=== PATIENT | female | born 1955 | race American Indian/Alaskan Native ===

== ENCOUNTER 2017-04-18 18:56 | Inpatient (IN) | payer MEDICARE ==
[2017-04-18 21:40] LABS: Basophils % (Auto) 0.9 % (0.0-1.8); Eosinophils % (Auto) 0.8 % (0.0-4.3); Hematocrit 27.5 % (30.3-42.9); Hemoglobin 9.2 gm/dl (10.1-14.3); Mean Corpuscular HGB Conc 33 % (30-34); Mean Corpuscular Hemoglobin 29 pg (28-32); Mean Corpuscular Volume 88 fl (79-97); Platelet Count 169 K/mm3 (140-440); Red Blood Count 3.13 M/mm3 (3.65-5.03); White Blood Count 7.8 K/mm3 (4.5-11.0)
[2017-04-18] MEDS ORDERED: NACL 0.9% 1000 ML 1,000 ML IV ONE (21:44)
[2017-04-18] MEDS ORDERED: ATIVAN IV ONE (21:44)
--- NOTE | 2017-04-18 21:49 | Emergency Department Report ---
HPI - General Chief Complaint: Altered Mental Status Time Seen by Provider: 04/18/17 21:39 - HPI HPI: Room 6 The patient is a 61-year-old female presenting with a chief complaint of altered mental status. The patient was sent from [facility] after staff reported the patient has been altered all day. Patient does not respond to questions. Patient doesn't make eye contact at times but then continued to sit in the bed and rocking [id number] during the interview. Patient does not provide a history Location: Mental state Duration: One day per personal [facility]dc Quality: Altered Severity: [see above] Modifying factors: [see above] Context: [see above] Mode of transportation: [not driving] ED Past Medical Hx - Past Medical History Previous Medical History?: Yes Hx Hypertension: Yes Hx Psychiatric Treatment: Yes (depression) Additional medical history: ETOH abuse; cirrhosis; elevated ammonia levels - Surgical History Past Surgical History?: No Additional Surgical History: LUBNA - Family History Family history: no significant - Social History Smoking Status: Unknown if ever smoked - Medications Home Medications: Home Medications Medication Instructions Recorded Confirmed Last Taken Type Sertraline [Zoloft] 50 mg PO QDAY 03/08/15 03/08/15 03/08/15 History Thiamine [Vitamin B-1] 100 mg PO QDAY 03/08/15 03/08/15 03/08/15 History ED Review of Systems ROS: Stated complaint: AMS Other details as noted in HPI Comment: Unobtainable due to pts medical conditions Physical Exam - Physical Exam Vital Signs: Vital Signs 04/18/17 04/18/17 04/18/17 20:20 20:30 20:46 Pulse Rate 107 H 113 H 133 H Respiratory 14 18 42 H Rate Blood Pressure 144/128 141/86 O2 Sat by Pulse 95 98 99 Oximetry Physical Exam: GENERAL: The patient is well-developed female lying on stretcher rocking back and forth not responding verbally HEENT: Normocephalic. Atraumatic. The patient has dry-appearing lips NECK: Supple. No meningitic signs are noted. CHEST/LUNGS: Clear to auscultation. There is no respiratory distress noted. HEART/CARDIOVASCULAR: Regular. There is tachycardia. There is no gallop rub or murmur. ABDOMEN: Abdomen is soft, nontender. Patient has normal bowel sounds. There is no abdominal distention. SKIN: There is no rash. There is 1-2+ bilateral lower extremity pitting edema. There is no diaphoresis. NEURO: The patient is awake but does not respond verbally. The patient is not cooperative. MUSCULOSKELETAL: There is no evidence of acute injury. ED Course Vital Signs 04/18/17 04/18/17 04/18/17 20:20 20:30 20:46 Pulse Rate 107 H 113 H 133 H Respiratory 14 18 42 H Rate Blood Pressure 144/128 141/86 O2 Sat by Pulse 95 98 99 Oximetry ED Medical Decision Making - Lab Data Result diagrams: 04/18/17 21:16 04/18/17 21:16 Laboratory Tests 04/18/17 04/18/17 04/18/17 21:16 21:16 21:16 WBC 7.8 RBC 3.13 L Hgb 9.2 L Hct 27.5 L MCV 88 MCH 29 MCHC 33 RDW 15.0 Plt Count 169 Lymph % (Auto) 17.8 [place] % (Auto) 8.8 H Eos % (Auto) 0.8 Baso % (Auto) 0.9 Lymph # 1.4 [place] # 0.7 Eos # 0.1 Baso # 0.1 Seg Neutrophils % 71.7 H Seg Neutrophils # 5.6 Sodium 148 H Potassium 3.8 Chloride 103.6 Carbon Dioxide 28 Anion Gap 20 BUN 13 Creatinine 1.4 H Estimated GFR 47 BUN/Creatinine Ratio 9.28 Glucose 76 Lactic Acid 4.10 H* Calcium 8.6 Magnesium 1.60 L Total Bilirubin 1.40 H AST 112 H ALT 54 Alkaline Phosphatase 113 Ammonia Total Creatine Kinase CK-MB (CK-2) CK-MB (CK-2) Rel Index Troponin T Total Protein 6.1 L Albumin 2.8 L Albumin/Globulin Ratio 0.8 Triglycerides Cholesterol LDL Cholesterol Direct HDL Cholesterol Cholesterol/HDL Ratio TSH Urine Color Urine Turbidity Urine pH Ur Specific [place] Urine Protein Urine Glucose (UA) Urine Ketones Urine Blood Urine Nitrite Urine Bilirubin Urine Urobilinogen Ur Leukocyte Esterase Urine WBC (Auto) Urine RBC (Auto) U Epithel Cells (Auto) Salicylates Urine Opiates Screen Urine Methadone Screen Acetaminophen Ur Barbiturates Screen Ur Phencyclidine Scrn Ur Amphetamines Screen U Benzodiazepines Scrn Urine Cocaine Screen U Marijuana (THC) Screen Drugs of Abuse Note Plasma/Serum Alcohol 04/18/17 04/18/17 04/18/17 21:16 21:16 21:16 WBC RBC Hgb Hct MCV MCH MCHC RDW Plt Count Lymph % (Auto) [place] % (Auto) Eos % (Auto) Baso % (Auto) Lymph # [place] # Eos # Baso # Seg Neutrophils % Seg Neutrophils # Sodium Potassium Chloride Carbon Dioxide Anion Gap BUN Creatinine Estimated GFR BUN/Creatinine Ratio Glucose Lactic Acid Calcium Magnesium Total Bilirubin AST ALT Alkaline Phosphatase Ammonia 124.0 H Total Creatine Kinase CK-MB (CK-2) CK-MB (CK-2) Rel Index Troponin T Total Protein Albumin Albumin/Globulin Ratio Triglycerides Cholesterol LDL Cholesterol Direct HDL Cholesterol Cholesterol/HDL Ratio TSH 2.030 Urine Color Urine Turbidity Urine pH Ur Specific [place] Urine Protein Urine Glucose (UA) Urine Ketones Urine Blood Urine Nitrite Urine Bilirubin Urine Urobilinogen Ur Leukocyte Esterase Urine WBC (Auto) Urine RBC (Auto) U Epithel Cells (Auto) Salicylates < 0.3 L Urine Opiates Screen Urine Methadone Screen Acetaminophen Ur Barbiturates Screen Ur Phencyclidine Scrn Ur Amphetamines Screen U Benzodiazepines Scrn Urine Cocaine Screen U Marijuana (THC) Screen Drugs of Abuse Note Plasma/Serum Alcohol 04/18/17 04/18/17 04/18/17 21:16 21:16 21:16 WBC RBC Hgb Hct MCV MCH MCHC RDW Plt Count Lymph % (Auto) [place] % (Auto) Eos % (Auto) Baso % (Auto) Lymph # [place] # Eos # Baso # Seg Neutrophils % Seg Neutrophils # Sodium Potassium Chloride Carbon Dioxide Anion Gap BUN Creatinine Estimated GFR BUN/Creatinine Ratio Glucose Lactic Acid Calcium Magnesium Total Bilirubin AST ALT Alkaline Phosphatase Ammonia Total Creatine Kinase 1496 H CK-MB (CK-2) 12.2 H CK-MB (CK-2) Rel Index 0.8 Troponin T 0.040 H Total Protein Albumin Albumin/Globulin Ratio Triglycerides 98 Cholesterol 82 LDL Cholesterol Direct 26 L HDL Cholesterol 37 L Cholesterol/HDL Ratio 2.21 TSH Urine Color Urine Turbidity Urine pH Ur Specific [place] Urine Protein Urine Glucose (UA) Urine Ketones Urine Blood Urine Nitrite Urine Bilirubin Urine Urobilinogen Ur Leukocyte Esterase Urine WBC (Auto) Urine RBC (Auto) U Epithel Cells (Auto) Salicylates Urine Opiates Screen Urine Methadone Screen Acetaminophen < 15.0 Ur Barbiturates Screen Ur Phencyclidine Scrn Ur Amphetamines Screen U Benzodiazepines Scrn Urine Cocaine Screen U Marijuana (THC) Screen Drugs of Abuse Note Plasma/Serum Alcohol < 0.01 04/18/17 04/18/17 22:39 22:39 WBC RBC Hgb Hct MCV MCH MCHC RDW Plt Count Lymph % (Auto) [place] % (Auto) Eos % (Auto) Baso % (Auto) Lymph # [place] # Eos # Baso # Seg Neutrophils % Seg Neutrophils # Sodium Potassium Chloride Carbon Dioxide Anion Gap BUN Creatinine Estimated GFR BUN/Creatinine Ratio Glucose Lactic Acid Calcium Magnesium Total Bilirubin AST ALT Alkaline Phosphatase Ammonia Total Creatine Kinase CK-MB (CK-2) CK-MB (CK-2) Rel Index Troponin T Total Protein Albumin Albumin/Globulin Ratio Triglycerides Cholesterol LDL Cholesterol Direct HDL Cholesterol Cholesterol/HDL Ratio TSH Urine Color Yellow Urine Turbidity Clear Urine pH 7.0 Ur Specific [place] 1.009 Urine Protein <15 mg/dl Urine Glucose (UA) Neg Urine Ketones Neg Urine Blood Sm Urine Nitrite Neg Urine Bilirubin Neg Urine Urobilinogen < 2.0 Ur Leukocyte Esterase Neg Urine WBC (Auto) < 1.0 Urine RBC (Auto) 2.0 U Epithel Cells (Auto) < 1.0 Salicylates Urine Opiates Screen Presumptive negative Urine Methadone Screen Presumptive negative Acetaminophen Ur Barbiturates Screen Presumptive negative Ur Phencyclidine Scrn Presumptive negative Ur Amphetamines Screen Presumptive negative U Benzodiazepines Scrn Presumptive negative Urine Cocaine Screen Presumptive negative U Marijuana (THC) Screen Presumptive negative Drugs of Abuse Note Disclamer Plasma/Serum Alcohol - EKG Data -: EKG Interpreted by Me EKG shows normal: sinus rhythm Rate: tachycardia (118 bpm) - EKG Data When compared to previous EKG there are: no significant change Interpretation: unchanged when compared t (03/08/2015) - Radiology Data Radiology results: report reviewed (CT head), image reviewed (CT head, chest x- ray) interpreted by me: Chest x-ray-no focal infiltrates, no pneumothorax CT head (read by radiologist)-no acute abnormality - Differential Diagnosis hepatic encephalopathy, UTI, EtOH withdrawal, pneumonia Critical care attestation.: If time is entered above; I have spent that time in minutes in the direct care of this critically ill patient, excluding procedure time. ED Disposition Clinical Impression: Hepatic encephalopathy, Rhabdomyolysis, Elevated troponin Disposition: OP ADMIT IP TO THIS HOSP Is pt being admited?: Yes Does the pt Need Aspirin: No Condition: Serious Referrals: PRIMARY CARE, [Primary Care Provider] - 3-5 Days Time of Disposition: 23:28 (hospitalist paged)
[2017-04-18 21:58] LABS: Creatine Kinase MB 12.2 ng/mL (0.0-4.0)
[2017-04-18 21:59] LABS: Albumin 2.8 g/dL (3.9-5); Albumin/Globulin Ratio 0.8 %; BUN/Creatinine Ratio 9.28; Bilirubin,Total 1.4 mg/dL (0.1-1.2); Calcium 8.6 mg/dL (8.4-10.2); Chloride 103.6 mmol/L (98-107); Magnesium 1.6 mg/dL (1.7-2.3); Potassium 3.8 mmol/L (3.6-5.0); Total Protein 6.1 g/dL (6.3-8.2)
[2017-04-18] MEDS ORDERED: CEPHULAC PR ONE (22:28)
[2017-04-18 23:02] LABS: Urine Drugs of Abuse Note Disclamer
[2017-04-18 23:11] LABS: Bilirubin,Urine NEG (Negative); Blood,Urine SM (Negative); Ketones,Urine NEG (Negative); Leukocyte Esterase,Urine NEG (Negative); Nitrite,Urine NEG (Negative); Protein,Urine <15 mg/dL mg/dL (Negative); Urobilinogen,Urine < 2.0 mg/dL (<2.0); WBC,Urine < 1.0 /HPF (0.0-6.0)
--- NOTE | 2017-04-18 23:16 | Cat Scan Report ---
FINAL REPORT PROCEDURE: CT HEAD/BRAIN WO CON TECHNIQUE: Computerized tomography of the head was performed without contrast material. HISTORY: altered mental status COMPARISON: No prior studies are available for comparison. FINDINGS: Skull and scalp: Normal. Paranasal sinuses: There is mucosal thickening in the paranasal sinuses. There are no air-fluid levels.. Ventricles and subarachnoid spaces: There is mild central and cortical atrophy. There is no hydrocephalus or asymmetry per. Cerebrum: No evidence of hemorrhage, acute infarction or mass . Cerebellum and brainstem: No evidence of hemorrhage, acute infarction or mass. Vasculature: There is calcified plaque in the cavernous portions of the internal carotid arteries.. Comments: None. IMPRESSION: There are involutional changes. There is no acute abnormality.
--- NOTE | 2017-04-18 23:56 | History and Physical Report ---
History of Present Illness Date of examination: 04/19/17 History of present illness: 61-year-old woman history of hypertension, cirrhosis, depression and was sent to the emergency room from her personal shelter for evaluation for altered mental status. The patient is unable to give a history. Her ammonia level was found to be elevated and she was started on lactulose. Her review of system is unobtainable PAST MEDICAL HISTORY:hypertension, cirrhosis, depression PAST SURGICAL HISTORY: Unknown FAILY HISTORY: Unknown SOCIAL HISTORY: Unknown Medications and Allergies Allergies Allergy/AdvReac Type Severity Reaction Status Date / Time No Known Allergies Allergy Verified 03/08/15 17:30 Home Medications Medication Instructions Recorded Confirmed Last Taken Type Famotidine [Pepcid] 20 mg PO BID 04/19/17 04/19/17 1 Day Ago History Furosemide [Lasix] 20 mg PO QDAY 04/19/17 04/19/17 1 Day Ago History Gabapentin [Neurontin] 300 mg PO BID 04/19/17 04/19/17 1 Day Ago History Haloperidol [Haldol] 1 mg PO Q4HR PRN 04/19/17 04/19/17 1 Day Ago History Ibuprofen [Motrin] 800 mg PO Q8HR PRN 04/19/17 04/19/17 1 Day Ago History Lactulose 10 gm PO BID 04/19/17 04/19/17 1 Day Ago History Oxybutynin Chloride [Oxybutynin 5 mg PO QDAY 04/19/17 04/19/17 1 Day Ago History Chloride ER] Potassium Chloride [Potassium 10 meq PO DAILY 04/19/17 04/19/17 1 Day Ago History Chloride] Sertraline HCl [Zoloft] 50 mg PO DAILY 04/19/17 04/19/17 1 Day Ago History Spironolactone [Aldactone] 25 mg PO QDAY 04/19/17 04/19/17 1 Day Ago History Trazodone HCl 100 mg PO QHS PRN 04/19/17 04/19/17 1 Day Ago History Exam - Physical Exam Narrative exam: Gen. appearance: Patient lying in bed in no acute distress HEENT: Normocephalic/atraumatic, pupils equal round reactive to light, unable to assess, +scleral icterus, no JVD or thyromegaly or nodule, neck is supple, mucous membrane moist, no erythema or exudate Heart: S1-S2, regular rate and rhythm Lungs: Clear to auscultation bilateral breathing comfortable Abdomen: Positive bowel sounds, nontender, nondistended, no organomegaly Extremities: No edema, cyanosis, clubbing Neuro:: difficult to assess Skin: No rash, nodules, warm dry - Constitutional Vitals: Temp Pulse Resp BP Pulse Ox 99.3 F 133 H 42 H 141/86 99 04/18/17 21:46 04/18/17 20:46 04/18/17 20:46 04/18/17 20:46 04/18/17 20:46 Results - Labs CBC & Chem 7: 04/24/17 15:31 04/28/17 09:11 Labs: Abnormal lab results 04/18/17 04/18/17 04/18/17 Range/Units 21:16 21:16 21:16 RBC 3.13 L (3.65-5.03) M/mm3 Hgb 9.2 L (10.1-14.3) gm/dl Hct 27.5 L (30.3-42.9) % [place] % (Auto) 8.8 H (0.0-7.3) % Seg Neutrophils % 71.7 H (40.0-70.0) % Sodium 148 H (137-145) mmol/L Creatinine 1.4 H (0.7-1.2) mg/dL Lactic Acid 4.10 H* (0.7-2.0) mmol/L Magnesium 1.60 L (1.7-2.3) mg/dL Total Bilirubin 1.40 H (0.1-1.2) mg/dL AST 112 H (5-40) units/L Ammonia (25-60) umol/L Total Creatine Kinase (30-135) units/L CK-MB (CK-2) (0.0-4.0) ng/mL Troponin T (0.00-0.029) ng/mL Total Protein 6.1 L (6.3-8.2) g/dL Albumin 2.8 L (3.9-5) g/dL LDL Cholesterol Direct (50-130) mg/dL HDL Cholesterol (40-59) mg/dL Salicylates (2.8-20.0) mg/dL 09/14/17 09/14/17 09/14/17 Range/Units 21:16 21:16 21:16 RBC (3.65-5.03) M/mm3 Hgb (10.1-14.3) gm/dl Hct (30.3-42.9) % [place] % (Auto) (0.0-7.3) % Seg Neutrophils % (40.0-70.0) % Sodium (137-145) mmol/L Creatinine (0.7-1.2) mg/dL Lactic Acid (0.7-2.0) mmol/L Magnesium (1.7-2.3) mg/dL Total Bilirubin (0.1-1.2) mg/dL AST (5-40) units/L Ammonia 124.0 H (25-60) umol/L Total Creatine Kinase 1496 H (30-135) units/L CK-MB (CK-2) 12.2 H (0.0-4.0) ng/mL Troponin T 0.040 H (0.00-0.029) ng/mL Total Protein (6.3-8.2) g/dL Albumin (3.9-5) g/dL LDL Cholesterol Direct 26 L (50-130) mg/dL HDL Cholesterol 37 L (40-59) mg/dL Salicylates < 0.3 L (2.8-20.0) mg/dL - Imaging and Cardiology CT Scan - head: report reviewed Assessment and Plan Assessment Hepatic encephalopathy Rhabdomyolysis Abnormal cardiac enzymes Hypertension Depression Plan Admit to medicine Start scheduled lactulose, IV fluids, check cardiac enzymes, echo Continue appropriate outpatient medications. Dvy prophylaxis Replete magnesium
[2017-04-19] MEDS ORDERED: MILK OF MAGNESIA PO PRN (05:42)
[2017-04-19] MEDS ORDERED: TYLENOL PO PRN (05:42)
[2017-04-19] MEDS ORDERED: MAGNESIUM SULFATE 1 GM in NACL 0.9% 50 ML IV ONE (05:58)
[2017-04-19] MEDS: NACL 0.9% 1000 ML 1,000 ML IV SCH ×2 (06:05→18:18)
[2017-04-19] MEDS: CEPHULAC PR SCH ×4 (06:26→20:40)
--- NOTE | 2017-04-19 07:19 | Admit Criteria Form ---
Admission Criteria Documentation: LIVER DISEASE COMPLICATIONS Clinical Indications for Admission to Inpatient Care (apache/check or initial the applicable condition/criteria) Admission is indicated for patient with 1 or more of the following(1)(2)(3)(4)(5 )(6)(7)(8)(9)(10)(11): [ ]I. Inpatient admission required rather than observation care because of 1 or more of the following: a) Hemodynamic instability that is severe or persistent b) Tachypnea persistent after emergency department and observation care treatment c) Hypoxemia d) Severe pain requiring acute inpatient management e) Acute renal failure f) Metabolic abnormalities (eg, hypoglycemia, acidosis) that are severe or persistent g) Vomiting that is severe or persistent h) Dehydration that is severe or persistent or hypervolemia that is severe or persistent i) Coagulation abnormality that is severe (eg, at risk for severe bleeding) j) Signs of intestinal obstruction or peritonitis[B] k) Continuous intravenous infusion of vasoactive or antiarrhythmic medication l) Percutaneous or open drainage (e.g., abscess, biliary tract) procedures m) Parenteral nutrition regimen that must be implemented on inpatient basis n) Other condition treatment or monitoring requiring inpatient admission [ ]II. Infected hepatic hydrothorax (eg, empyema) [ ]III. Hepatorenal syndrome (eg, elevated. creatinine with adequate volume status and negative evaluation for other cause)(14) [ ]IV. Spontaneous bacterial peritonitis V. Suspected infected ascites as indicated by 1 or more of the following: a) Temp >100 degrees F (37.8 C ) b) High WBC count c) Abdominal pain or tenderness not relieved by paracentesis [X]. New-onset or worsening hepatic encephalopathy(13) [ ]VII. Suspected fulminant hepatic failure (e.g., acute coagulopathy with hepatic encephalopathy or acute elevation of hepatic transaminases to more than 15 times baseline)(5) [ ]VIII. Acute hepatitis (e.g., ALT and AST at least 3 times baseline) with coagulopathy or severe jaundice as indicated by 1 or more of the following(15)(16): a) Bilirubin >20 mg/dL (342 moles/L)(17) b) Acute elevation of PT to >50% above normal or INR >1.5 [ ]IX. Treatment of injury from hepatotoxin (e.g., acetaminophen) that requires inpatient monitoring [ ]X. Acute fatty liver of Extended stay beyond goal length of stay may be needed for(4)(7)(8)(9)(10)(11)( 25): a) Hepatorenal syndrome(14) b) Renal failure due to other causes associated with cirrhosis (e.g., hypovolemia)(14) c) Severe or persistent hepatic encephalopathy(13) d) Refractory ascites, volume, or electrolyte abnormality(4)(26)(27) e) Severe infectious or hepatotoxin-induced hepatitis (eg, acetaminophen) f) Severe or persistent gastroesophageal bleeding (29)(30)(31)(32)(33) g) Severe or persistent coagulation abnormalities(34) h) Hemodynamic instability that is severe or persistent The original [employer] content created by [employer] has been revised. The portions of the content which have been revised are identified through the use of italic text or in bold, and [facility] has neither reviewed nor approved the modified material. All other unmodified content is copyright [employer]. Please see references footnoted in the original [employer] edition 2017 Admission Criteria Met: Yes
--- NOTE | 2017-04-19 07:43 | XRay Report ---
Single view chest: History: Tachycardia. Findings: Borderline cardiomegaly. Trachea is midline. No consolidation, pneumothorax or pleural effusion. Impression: No acute cardiopulmonary findings.
[2017-04-19 10:26] LABS: Creatine Kinase MB 12.9 ng/mL (0.0-4.0)
--- NOTE | 2017-04-19 16:48 | Progress Note ---
Assessment and Plan Assessment and plan: 1. Acute toxic metabolic encephalopathy/hepatic encephalopathy Started on lactulose Treat electrolyte abnormalities Rule out infection 2. Alcoholic cirrhosis [facility] protocol Banana bag Supportive care 3. Anemia Secondary to alcoholism/cirrhosis Monitor H&H 4. Malnutrition Severe, albumin 2.8 Likely due to alcoholism/cirrhosis Diet supplementation 5. Acute renal failure Likely secondary to vasomotor nephropathy Give IV fluids and monitor 6. Metabolic acidosis/lactic acidosis Secondary to renal failure/no symptoms/signs of infection 7. Hypernatremia Give IV fluids and monitor sodium level 8. Hypomagnesemia Replace 8. Acute rhabdomyolysis CPK in 1400s Give IV fluids Trend CPK 9. Elevated troponin Mild elevation, likely nonspecific in the setting of renal failure 10. DVT/GI prophylaxis History Interval history: Altered, unable to follow any commands, agitated Hospitalist Physical - Constitutional Vitals: Temp Pulse Resp BP Pulse Ox 99.3 F 96 H 15 132/54 95 04/18/17 21:46 04/19/17 13:02 04/19/17 13:02 04/19/17 13:02 04/19/17 10:42 General appearance: Present: mild distress - EENT Eyes: Present: PERRL, EOM intact - Neck Neck: Absent: enlarged thyroid, masses or JVD, carotid bruits - Respiratory Respiratory effort: normal Respiratory: bilateral: CTA, negative: rhonchi, wheezing - Cardiovascular Rhythm: other (tachycardic) Heart Sounds: Present: S1 & S2. Absent: systolic murmur - Extremities Extremities: no ischemia - Abdominal General gastrointestinal: soft, non-tender, non-distended, normal bowel sounds - Psychiatric Psychiatric: no appropriate mood/affect, no intact judgment & insight, no memory intact, agitated - Neurologic Neurologic: moves all extremities Results - Labs CBC & Chem 7: 04/20/17 07:01 04/20/17 07:01 Labs: Laboratory Last Values WBC 7.8 K/mm3 (4.5-11.0) 04/18/17 21:16 RBC 3.13 M/mm3 (3.65-5.03) L 04/18/17 21:16 Hgb 9.2 gm/dl (10.1-14.3) L 04/18/17 21:16 Hct 27.5 % (30.3-42.9) L 04/18/17 21:16 MCV 88 fl (79-97) 04/18/17 21:16 MCH 29 pg (28-32) 04/18/17 21:16 MCHC 33 % (30-34) 04/18/17 21:16 RDW 15.0 % (13.2-15.2) 04/18/17 21:16 Plt Count 169 K/mm3 (140-440) 04/18/17 21:16 Lymph % (Auto) 17.8 % (13.4-35.0) 04/18/17 21:16 [place] % (Auto) 8.8 % (0.0-7.3) H 04/18/17 21:16 Eos % (Auto) 0.8 % (0.0-4.3) 04/18/17 21:16 Baso % (Auto) 0.9 % (0.0-1.8) 04/18/17 21:16 Lymph # 1.4 K/mm3 (1.2-5.4) 04/18/17 21:16 [place] # 0.7 K/mm3 (0.0-0.8) 04/18/17 21:16 Eos # 0.1 K/mm3 (0.0-0.4) 04/18/17 21:16 Baso # 0.1 K/mm3 (0.0-0.1) 04/18/17 21:16 Seg Neutrophils % 71.7 % (40.0-70.0) H 04/18/17 21:16 Seg Neutrophils # 5.6 K/mm3 (1.8-7.7) 04/18/17 21:16 Sodium 148 mmol/L (137-145) H 04/18/17 21:16 Potassium 3.8 mmol/L (3.6-5.0) 04/18/17 21:16 Chloride 103.6 mmol/L (98-107) 04/18/17 21:16 Carbon Dioxide 28 mmol/L (22-30) 04/18/17 21:16 Anion Gap 20 mmol/L 04/18/17 21:16 BUN 13 mg/dL (7-17) 04/18/17 21:16 Creatinine 1.4 mg/dL (0.7-1.2) H 04/18/17 21:16 Estimated GFR 47 ml/min 04/18/17 21:16 BUN/Creatinine Ratio 9.28 % 04/18/17 21:16 Glucose 76 mg/dL (65-100) 04/18/17 21:16 Lactic Acid 3.30 mmol/L (0.7-2.0) H* 04/19/17 00:16 Calcium 8.6 mg/dL (8.4-10.2) 04/18/17 21:16 Magnesium 1.60 mg/dL (1.7-2.3) L 04/18/17 21:16 Total Bilirubin 1.40 mg/dL (0.1-1.2) H 04/18/17 21:16 AST 112 units/L (5-40) H 04/18/17 21:16 ALT 54 units/L (7-56) 04/18/17 21:16 Alkaline Phosphatase 113 units/L (35-129) 04/18/17 21:16 Ammonia 124.0 umol/L (25-60) H 04/18/17 21:16 Total Creatine Kinase 1934 units/L (30-135) H 04/19/17 15:59 CK-MB (CK-2) 18.0 ng/mL (0.0-4.0) H 04/19/17 15:59 CK-MB (CK-2) Rel Index 0.9 (0-4) 04/19/17 15:59 Troponin T 0.043 ng/mL (0.00-0.029) H 04/19/17 15:59 Total Protein 6.1 g/dL (6.3-8.2) L 04/18/17 21:16 Albumin 2.8 g/dL (3.9-5) L 04/18/17 21:16 Albumin/Globulin Ratio 0.8 % 04/18/17 21:16 Triglycerides 98 mg/dL (2-149) 04/18/17 21:16 Cholesterol 82 mg/dL (50-199) 04/18/17 21:16 LDL Cholesterol Direct 26 mg/dL (50-130) L 04/18/17 21:16 HDL Cholesterol 37 mg/dL (40-59) L 04/18/17 21:16 Cholesterol/HDL Ratio 2.21 % 04/18/17 21:16 TSH 2.030 mlU/mL (0.270-4.200) 04/18/17 21:16 Urine Color Yellow (Yellow) 04/18/17 22:39 Urine Turbidity Clear (Clear) 04/18/17 22:39 Urine pH 7.0 (5.0-7.0) 04/18/17 22:39 Ur Specific [place] 1.009 (1.003-1.030) 04/18/17 22:39 Urine Protein <15 mg/dl mg/dL (Negative) 04/18/17 22:39 Urine Glucose (UA) Neg mg/dL (Negative) 04/18/17 22:39 Urine Ketones Neg mg/dL (Negative) 04/18/17 22:39 Urine Blood Sm (Negative) 04/18/17 22:39 Urine Nitrite Neg (Negative) 04/18/17 22:39 Urine Bilirubin Neg (Negative) 04/18/17 22:39 Urine Urobilinogen < 2.0 mg/dL (<2.0) 04/18/17 22:39 Ur Leukocyte Esterase Neg (Negative) 04/18/17 22:39 Urine WBC (Auto) < 1.0 /HPF (0.0-6.0) 04/18/17 22:39 Urine RBC (Auto) 2.0 /HPF (0.0-6.0) 04/18/17 22:39 U Epithel Cells (Auto) < 1.0 /HPF (0-13.0) 04/18/17 22:39 Salicylates < 0.3 mg/dL (2.8-20.0) L 04/18/17 21:16 Urine Opiates Screen Presumptive negative 04/18/17 22:39 Urine Methadone Screen Presumptive negative 04/18/17 22:39 Acetaminophen < 15.0 ug/mL (10.0-30.0) 04/18/17 21:16 Ur Barbiturates Screen Presumptive negative 04/18/17 22:39 Ur Phencyclidine Scrn Presumptive negative 04/18/17 22:39 Ur Amphetamines Screen Presumptive negative 04/18/17 22:39 U Benzodiazepines Scrn Presumptive negative 04/18/17 22:39 Urine Cocaine Screen Presumptive negative 04/18/17 22:39 U Marijuana (THC) Screen Presumptive negative 04/18/17 22:39 Drugs of Abuse Note Disclamer 04/18/17 22:39 Plasma/Serum Alcohol < 0.01 gm% (0-0.07) 04/18/17 21:16 - Imaging and Cardiology Chest x-ray: image reviewed CT Scan - head: report reviewed
[2017-04-19] MEDS ORDERED: PNEUMOVAX 23 IM ONE (17:15)
[2017-04-20] MEDS: CEPHULAC PR SCH ×4 (05:50→18:08)
[2017-04-20 07:41] LABS: Basophils % (Auto) 0.5 % (0.0-1.8); Hematocrit 28.2 % (30.3-42.9); Hemoglobin 8.9 gm/dl (10.1-14.3); Mean Corpuscular HGB Conc 32 % (30-34); Mean Corpuscular Hemoglobin 28 pg (28-32); Mean Corpuscular Volume 90 fl (79-97); Red Blood Count 3.13 M/mm3 (3.65-5.03); Red Cell Distribution Width 15.2 % (13.2-15.2); White Blood Count 10.1 K/mm3 (4.5-11.0)
[2017-04-20 08:28] LABS: Platelet Count 53 K/mm3 (140-440)
[2017-04-20 08:49] LABS: BUN/Creatinine Ratio 10.76; Calcium 8.4 mg/dL (8.4-10.2); Chloride 110.7 mmol/L (98-107); Potassium 4.4 mmol/L (3.6-5.0)
[2017-04-20] MEDS ORDERED: PNEUMOVAX 23 IM ONE (12:00)
[2017-04-20] MEDS ORDERED: ATIVAN IV PRN (17:13)
--- NOTE | 2017-04-20 17:23 | Progress Note ---
Assessment and Plan Assessment and plan: 1. Acute toxic metabolic encephalopathy/hepatic encephalopathy Ammonia still significantly elevated Continue lactulose Treat electrolyte abnormalities Rule out infection (UA negative, obtain blood cultures, recheck lactic acid) 2. Alcoholic cirrhosis [facility] protocol Continue banana bag Supportive care 3. Anemia Secondary to alcoholism/cirrhosis Monitor H&H 4. Thrombocytopenia Secondary to cirrhosis likely Monitor 5. Malnutrition Severe, albumin 2.8 Likely due to alcoholism/cirrhosis Diet supplementation 6. Acute renal failure Likely secondary to vasomotor nephropathy Continue IV fluids and monitor 6. Metabolic acidosis/lactic acidosis Secondary to renal failure/no symptoms/signs of infection 7. Hypernatremia Na 148 today Continue IV fluids and monitor sodium level 8. Hypomagnesemia Replace and recheck in am 8. Acute rhabdomyolysis CPK trended up, in 1900s today Continue IV fluids 9. Elevated troponin Mild elevation, likely nonspecific in the setting of renal failure 10. DVT/GI prophylaxis No pharmacological agent given anemia/thrombocytopenia/cirrhosis. Protonix History Interval history: no change, agitated, restless, not answering, not following any commands Hospitalist Physical - Constitutional Vitals: Temp Pulse Resp BP Pulse Ox 99.3 F 96 H 22 102/59 97 04/18/17 21:46 04/20/17 00:00 04/19/17 14:20 04/19/17 14:20 04/19/17 20:40 General appearance: Present: mild distress - EENT Eyes: Present: PERRL, EOM intact - Respiratory Respiratory effort: normal Respiratory: bilateral: CTA, negative: rhonchi, wheezing - Cardiovascular Rhythm: regular Heart Sounds: Present: S1 & S2. Absent: systolic murmur - Extremities Extremities: no ischemia - Abdominal General gastrointestinal: soft, non-tender, non-distended, normal bowel sounds - Psychiatric Psychiatric: no appropriate mood/affect, no intact judgment & insight, no memory intact, agitated - Neurologic Neurologic: moves all extremities Results - Labs CBC & Chem 7: 04/20/17 07:01 04/20/17 07:01 Labs: Laboratory Last Values WBC 10.1 K/mm3 (4.5-11.0) 04/20/17 07:01 RBC 3.13 M/mm3 (3.65-5.03) L 04/20/17 07:01 Hgb 8.9 gm/dl (10.1-14.3) L 04/20/17 07:01 Hct 28.2 % (30.3-42.9) L 04/20/17 07:01 MCV 90 fl (79-97) 04/20/17 07:01 MCH 28 pg (28-32) 04/20/17 07:01 MCHC 32 % (30-34) 04/20/17 07:01 RDW 15.2 % (13.2-15.2) 04/20/17 07:01 Plt Count 53 K/mm3 (140-440) L 04/20/17 07:01 Lymph % (Auto) 18.3 % (13.4-35.0) 04/20/17 07:01 [place] % (Auto) 10.3 % (0.0-7.3) H 04/20/17 07:01 Eos % (Auto) 1.0 % (0.0-4.3) 04/20/17 07:01 Baso % (Auto) 0.5 % (0.0-1.8) 04/20/17 07:01 Lymph # 1.8 K/mm3 (1.2-5.4) 04/20/17 07:01 [place] # 1.0 K/mm3 (0.0-0.8) H 04/20/17 07:01 Eos # 0.1 K/mm3 (0.0-0.4) 04/20/17 07:01 Baso # 0.0 K/mm3 (0.0-0.1) 04/20/17 07:01 Seg Neutrophils % 69.9 % (40.0-70.0) 04/20/17 07:01 Seg Neutrophils # 7.1 K/mm3 (1.8-7.7) 04/20/17 07:01 Sodium 148 mmol/L (137-145) H 04/20/17 07:01 Potassium 4.4 mmol/L (3.6-5.0) 04/20/17 07:01 Chloride 110.7 mmol/L (98-107) H 04/20/17 07:01 Carbon Dioxide 20 mmol/L (22-30) L D 04/20/17 07:01 Anion Gap 22 mmol/L 04/20/17 07:01 BUN 14 mg/dL (7-17) 04/20/17 07:01 Creatinine 1.3 mg/dL (0.7-1.2) H 04/20/17 07:01 Estimated GFR 51 ml/min 04/20/17 07:01 BUN/Creatinine Ratio 10.76 % 04/20/17 07:01 Glucose 49 mg/dL (65-100) L 04/20/17 07:01 Lactic Acid 3.30 mmol/L (0.7-2.0) H* 04/19/17 00:16 Calcium 8.4 mg/dL (8.4-10.2) 04/20/17 07:01 Magnesium 1.60 mg/dL (1.7-2.3) L 04/18/17 21:16 Total Bilirubin 1.40 mg/dL (0.1-1.2) H 04/18/17 21:16 AST 112 units/L (5-40) H 04/18/17 21:16 ALT 54 units/L (7-56) 04/18/17 21:16 Alkaline Phosphatase 113 units/L (35-129) 04/18/17 21:16 Ammonia 100.0 umol/L (25-60) H 04/20/17 08:41 Total Creatine Kinase 1934 units/L (30-135) H 04/19/17 15:59 CK-MB (CK-2) 18.0 ng/mL (0.0-4.0) H 04/19/17 15:59 CK-MB (CK-2) Rel Index 0.9 (0-4) 04/19/17 15:59 Troponin T 0.043 ng/mL (0.00-0.029) H 04/19/17 15:59 Total Protein 6.1 g/dL (6.3-8.2) L 04/18/17 21:16 Albumin 2.8 g/dL (3.9-5) L 04/18/17 21:16 Albumin/Globulin Ratio 0.8 % 04/18/17 21:16 Triglycerides 98 mg/dL (2-149) 04/18/17 21:16 Cholesterol 82 mg/dL (50-199) 04/18/17 21:16 LDL Cholesterol Direct 26 mg/dL (50-130) L 04/18/17 21:16 HDL Cholesterol 37 mg/dL (40-59) L 04/18/17 21:16 Cholesterol/HDL Ratio 2.21 % 04/18/17 21:16 TSH 2.030 mlU/mL (0.270-4.200) 04/18/17 21:16 Urine Color Yellow (Yellow) 04/18/17 22:39 Urine Turbidity Clear (Clear) 04/18/17 22:39 Urine pH 7.0 (5.0-7.0) 04/18/17 22:39 Ur Specific [place] 1.009 (1.003-1.030) 04/18/17 22:39 Urine Protein <15 mg/dl mg/dL (Negative) 04/18/17 22:39 Urine Glucose (UA) Neg mg/dL (Negative) 04/18/17 22:39 Urine Ketones Neg mg/dL (Negative) 04/18/17 22:39 Urine Blood Sm (Negative) 04/18/17 22:39 Urine Nitrite Neg (Negative) 04/18/17 22:39 Urine Bilirubin Neg (Negative) 04/18/17 22:39 Urine Urobilinogen < 2.0 mg/dL (<2.0) 04/18/17 22:39 Ur Leukocyte Esterase Neg (Negative) 04/18/17 22:39 Urine WBC (Auto) < 1.0 /HPF (0.0-6.0) 04/18/17 22:39 Urine RBC (Auto) 2.0 /HPF (0.0-6.0) 04/18/17 22:39 U Epithel Cells (Auto) < 1.0 /HPF (0-13.0) 04/18/17 22:39 Salicylates < 0.3 mg/dL (2.8-20.0) L 04/18/17 21:16 Urine Opiates Screen Presumptive negative 04/18/17 22:39 Urine Methadone Screen Presumptive negative 04/18/17 22:39 Acetaminophen < 15.0 ug/mL (10.0-30.0) 04/18/17 21:16 Ur Barbiturates Screen Presumptive negative 04/18/17 22:39 Ur Phencyclidine Scrn Presumptive negative 04/18/17 22:39 Ur Amphetamines Screen Presumptive negative 04/18/17 22:39 U Benzodiazepines Scrn Presumptive negative 04/18/17 22:39 Urine Cocaine Screen Presumptive negative 04/18/17 22:39 U Marijuana (THC) Screen Presumptive negative 04/18/17 22:39 Drugs of Abuse Note Disclamer 04/18/17 22:39 Plasma/Serum Alcohol < 0.01 gm% (0-0.07) 04/18/17 21:16
[2017-04-20] MEDS ORDERED: PROTONIX IV SCH (18:00)
[2017-04-20] MEDS ORDERED: 1: FOLVITE 1 MG, INFUVITE 10 ML, VITAMIN B-1 100 MG in NACL 0.9% 1000 ML 988.8 ML 2: NA IV SCH (18:00)
[2017-04-20] MEDS: ATIVAN IV PRN ×2 (18:03→21:50)
[2017-04-20] MEDS: PEPCID IV SCH (21:44)
[2017-04-21] MEDS: CEPHULAC PR SCH ×3 (00:40→13:53)
[2017-04-21 05:20] LABS: Albumin 2.6 g/dL (3.9-5); Albumin/Globulin Ratio 0.8 %; Bilirubin,Total 1.7 mg/dL (0.1-1.2); Calcium 8.6 mg/dL (8.4-10.2); Potassium 4.2 mmol/L (3.6-5.0)
[2017-04-21 05:21] LABS: Basophils % (Auto) 0.4 % (0.0-1.8); Eosinophils % (Auto) 1.3 % (0.0-4.3); Hematocrit 26.4 % (30.3-42.9); Hemoglobin 8.7 gm/dl (10.1-14.3); Mean Corpuscular HGB Conc 33 % (30-34); Mean Corpuscular Hemoglobin 29 pg (28-32); Mean Corpuscular Volume 88 fl (79-97); Platelet Count 148 K/mm3 (140-440); Red Blood Count 2.98 M/mm3 (3.65-5.03); Red Cell Distribution Width 14.9 % (13.2-15.2); White Blood Count 9.6 K/mm3 (4.5-11.0)
[2017-04-21 05:29] LABS: INR 1.58 (0.87-1.13)
[2017-04-21] MEDS: ATIVAN IV PRN (09:07)
[2017-04-21] MEDS: PEPCID IV SCH ×2 (11:01→23:04)
[2017-04-21] MEDS ORDERED: PANCREAZE DR 10,500 UNIT FEEDTUBE PRN ×2 (12:30→13:56)
[2017-04-21] MEDS ORDERED: SODIUM BICARBONATE FEEDTUBE PRN ×2 (12:30→13:56)
[2017-04-21] MEDS ORDERED: SIMPLE SYRUP FEEDTUBE PRN ×4 (12:30→13:56)
[2017-04-21] MEDS ORDERED: 1: FOLVITE 1 MG, INFUVITE 10 ML, VITAMIN B-1 100 MG in NACL 0.9% 1000 ML 988.8 ML 2: NA IV SCH (13:00)
[2017-04-21] MEDS ORDERED: VITAMIN B-1 100 MG, FOLVITE 1 MG, INFUVITE 10 ML in NACL 0.9% 1000 ML 1,000 ML IV ONE (14:00)
[2017-04-21] MEDS: HALDOL IV PRN (14:14)
--- NOTE | 2017-04-21 17:43 | Progress Note ---
Assessment and Plan Assessment and plan: 1. Acute toxic metabolic encephalopathy/hepatic encephalopathy Ammonia level trended down, but no significant change in mental status Continue lactulose Treat electrolyte abnormalities Rule out infection (UA negative, blood cultures obtained, results pending) 2. Alcoholic cirrhosis [facility] protocol Continue banana bag Supportive care 3. Anemia Secondary to alcoholism/cirrhosis Monitor H&H 4. Thrombocytopenia Secondary to cirrhosis likely Monitor 5. Coagulopathy Due to cirrhosis Monitor INR 6. Malnutrition Severe, albumin 2.8 Likely due to alcoholism/cirrhosis Start TF 7. Acute renal failure Likely secondary to vasomotor nephropathy/rhabdomyolysis Slight worsening as CPK is trending up Continue IV fluids and monitor 8. Metabolic acidosis/lactic acidosis Secondary to renal failure/no symptoms/signs of infection 9. Hypernatremia Worsening Continue IV fluids (hypotonic) and monitor sodium level 10. Hypomagnesemia Replaced 11. Acute rhabdomyolysis CPK continues to trend up, 5700s today Continue IV fluids 12. Elevated troponin Mild elevation, likely nonspecific in the setting of renal failure 13. DVT/GI prophylaxis No pharmacological agent given anemia/thrombocytopenia/cirrhosis. Protonix History Interval history: no change, agitated, restless, in restraints, not answering, not following any commands Hospitalist Physical - Constitutional Vitals: Temp Pulse Resp BP Pulse Ox 98.6 F 104 H 20 102/54 100 04/21/17 05:28 04/21/17 08:00 04/21/17 05:28 04/21/17 05:28 04/21/17 09:47 General appearance: Present: mild distress, disheveled - EENT Eyes: Present: PERRL, EOM intact, scleral icterus. Absent: conjunctival injection - Neck Neck: Present: supple. Absent: masses or JVD, carotid bruits - Respiratory Respiratory effort: normal Respiratory: bilateral: CTA, negative: rhonchi, wheezing - Cardiovascular Rhythm: other (tachycardic) Heart Sounds: Present: S1 & S2. Absent: systolic murmur - Extremities Extremities: no ischemia - Abdominal General gastrointestinal: soft, non-tender, non-distended, normal bowel sounds - Psychiatric Psychiatric: no appropriate mood/affect, no intact judgment & insight, no memory intact, agitated - Neurologic Neurologic: moves all extremities Results - Labs CBC & Chem 7: 04/21/17 04:41 04/21/17 04:41 Labs: Laboratory Last Values WBC 9.6 K/mm3 (4.5-11.0) 04/21/17 04:41 RBC 2.98 M/mm3 (3.65-5.03) L 04/21/17 04:41 Hgb 8.7 gm/dl (10.1-14.3) L 04/21/17 04:41 Hct 26.4 % (30.3-42.9) L 04/21/17 04:41 MCV 88 fl (79-97) 04/21/17 04:41 MCH 29 pg (28-32) 04/21/17 04:41 MCHC 33 % (30-34) 04/21/17 04:41 RDW 14.9 % (13.2-15.2) 04/21/17 04:41 Plt Count 148 K/mm3 (140-440) D 04/21/17 04:41 Lymph % (Auto) 16.3 % (13.4-35.0) 04/21/17 04:41 [place] % (Auto) 9.1 % (0.0-7.3) H 04/21/17 04:41 Eos % (Auto) 1.3 % (0.0-4.3) 04/21/17 04:41 Baso % (Auto) 0.4 % (0.0-1.8) 04/21/17 04:41 Lymph # 1.6 K/mm3 (1.2-5.4) 04/21/17 04:41 [place] # 0.9 K/mm3 (0.0-0.8) H 04/21/17 04:41 Eos # 0.1 K/mm3 (0.0-0.4) 04/21/17 04:41 Baso # 0.0 K/mm3 (0.0-0.1) 04/21/17 04:41 Seg Neutrophils % 72.9 % (40.0-70.0) H 04/21/17 04:41 Seg Neutrophils # 7.0 K/mm3 (1.8-7.7) 04/21/17 04:41 PT 19.7 Sec. (12.2-14.9) H 04/21/17 04:41 INR 1.58 (0.87-1.13) H 04/21/17 04:41 Sodium 150 mmol/L (137-145) H 04/21/17 04:41 Potassium 4.2 mmol/L (3.6-5.0) 04/21/17 04:41 Chloride 112.0 mmol/L (98-107) H 04/21/17 04:41 Carbon Dioxide 23 mmol/L (22-30) 04/21/17 04:41 Anion Gap 19 mmol/L 04/21/17 04:41 BUN 14 mg/dL (7-17) 04/21/17 04:41 Creatinine 1.4 mg/dL (0.7-1.2) H 04/21/17 04:41 Estimated GFR 47 ml/min 04/21/17 04:41 BUN/Creatinine Ratio 10.00 % 04/21/17 04:41 Glucose 74 mg/dL (65-100) 04/21/17 04:41 Lactic Acid 3.10 mmol/L (0.7-2.0) H* 04/20/17 22:40 Calcium 8.6 mg/dL (8.4-10.2) 04/21/17 04:41 Magnesium 2.00 mg/dL (1.7-2.3) 04/21/17 04:41 Total Bilirubin 1.70 mg/dL (0.1-1.2) H 04/21/17 04:41 AST 279 units/L (5-40) H 04/21/17 04:41 ALT 91 units/L (7-56) H 04/21/17 04:41 Alkaline Phosphatase 96 units/L (35-129) 04/21/17 04:41 Ammonia 57.0 umol/L (25-60) 04/21/17 04:41 Total Creatine Kinase 5715 units/L (30-135) H 04/21/17 04:41 CK-MB (CK-2) 18.0 ng/mL (0.0-4.0) H 04/19/17 15:59 CK-MB (CK-2) Rel Index 0.9 (0-4) 04/19/17 15:59 Troponin T 0.043 ng/mL (0.00-0.029) H 04/19/17 15:59 Total Protein 6.0 g/dL (6.3-8.2) L 04/21/17 04:41 Albumin 2.6 g/dL (3.9-5) L 04/21/17 04:41 Albumin/Globulin Ratio 0.8 % 04/21/17 04:41 Triglycerides 98 mg/dL (2-149) 04/18/17 21:16 Cholesterol 82 mg/dL (50-199) 04/18/17 21:16 LDL Cholesterol Direct 26 mg/dL (50-130) L 04/18/17 21:16 HDL Cholesterol 37 mg/dL (40-59) L 04/18/17 21:16 Cholesterol/HDL Ratio 2.21 % 04/18/17 21:16 TSH 2.030 mlU/mL (0.270-4.200) 04/18/17 21:16 Urine Color Yellow (Yellow) 04/18/17 22:39 Urine Turbidity Clear (Clear) 04/18/17 22:39 Urine pH 7.0 (5.0-7.0) 04/18/17 22:39 Ur Specific [place] 1.009 (1.003-1.030) 04/18/17 22:39 Urine Protein <15 mg/dl mg/dL (Negative) 04/18/17 22:39 Urine Glucose (UA) Neg mg/dL (Negative) 04/18/17 22:39 Urine Ketones Neg mg/dL (Negative) 04/18/17 22:39 Urine Blood Sm (Negative) 04/18/17 22:39 Urine Nitrite Neg (Negative) 04/18/17 22:39 Urine Bilirubin Neg (Negative) 04/18/17 22:39 Urine Urobilinogen < 2.0 mg/dL (<2.0) 04/18/17 22:39 Ur Leukocyte Esterase Neg (Negative) 04/18/17 22:39 Urine WBC (Auto) < 1.0 /HPF (0.0-6.0) 04/18/17 22:39 Urine RBC (Auto) 2.0 /HPF (0.0-6.0) 04/18/17 22:39 U Epithel Cells (Auto) < 1.0 /HPF (0-13.0) 04/18/17 22:39 Salicylates < 0.3 mg/dL (2.8-20.0) L 04/18/17 21:16 Urine Opiates Screen Presumptive negative 04/18/17 22:39 Urine Methadone Screen Presumptive negative 04/18/17 22:39 Acetaminophen < 15.0 ug/mL (10.0-30.0) 04/18/17 21:16 Ur Barbiturates Screen Presumptive negative 04/18/17 22:39 Ur Phencyclidine Scrn Presumptive negative 04/18/17 22:39 Ur Amphetamines Screen Presumptive negative 04/18/17 22:39 U Benzodiazepines Scrn Presumptive negative 04/18/17 22:39 Urine Cocaine Screen Presumptive negative 04/18/17 22:39 U Marijuana (THC) Screen Presumptive negative 04/18/17 22:39 Drugs of Abuse Note Disclamer 04/18/17 22:39 Plasma/Serum Alcohol < 0.01 gm% (0-0.07) 04/18/17 21:16
[2017-04-21] MEDS ORDERED: D5/0.45NS 1,000 ML IV SCH (22:00)
[2017-04-22] MEDS: CEPHULAC PR SCH ×5 (01:00→18:17)
--- NOTE | 2017-04-22 06:13 | XRay Report ---
FINAL REPORT EXAM: XR ABDOMEN 1V AP HISTORY: Dobhoff placement COMPARISONS: None. FINDINGS: AP portable upper abdominal radiograph Dobhoff tube is coiled at the gastroesophageal junction with tip oriented superiorly. No pneumoperitoneum. IMPRESSION: Dobhoff tube is coiled at the gastroesophageal junction with tip oriented superiorly. Repeat radiograph following repositioning is suggested. Notification initiated via [facility] client support coordinator immediately following this dictation.
[2017-04-22 08:15] LABS: Albumin 2.5 g/dL (3.9-5); Albumin/Globulin Ratio 0.7 %; Alkaline Phosphatase 88 units/L (35-129); BUN/Creatinine Ratio 12.72; Blood Urea Nitrogen 14 mg/dL (7-17); Calcium 8.3 mg/dL (8.4-10.2); Carbon Dioxide 21 mmol/L (22-30); Glucose 100 mg/dL (65-100); Lipase 73 units/L (13-60)
[2017-04-22 08:16] LABS: Chloride 116.1 mmol/L (98-107); Sodium 153 mmol/L (137-145)
[2017-04-22 08:43] LABS: Creatine Kinase 9142 units/L (30-135)
[2017-04-22 08:57] LABS: Anion Gap 21 mmol/L; Potassium 4.6 mmol/L (3.6-5.0)
[2017-04-22 08:58] LABS: Alanine Aminotransferase 120 units/L (7-56)
[2017-04-22] MEDS: PEPCID IV SCH ×2 (09:34→21:48)
[2017-04-22] MEDS: HALDOL IV PRN ×2 (12:10→21:48)
--- NOTE | 2017-04-22 19:10 | Progress Note ---
Assessment and Plan Assessment and plan: 1. Acute toxic metabolic encephalopathy/hepatic encephalopathy Ammonia level trended down, but no significant change in mental status Infection ruled out CT head with involutional changes ? chronic alcohol/Wernicke encephalopathy 2. Alcoholic cirrhosis [facility] protocol Continue banana bag Supportive care 3. Anemia Secondary to alcoholism/cirrhosis Monitor H&H 4. Thrombocytopenia Secondary to cirrhosis likely trending up 5. Coagulopathy Due to cirrhosis Monitor INR 6. Malnutrition Severe, albumin 2.8 Likely due to alcoholism/cirrhosis TF 7. Acute renal failure Likely secondary to vasomotor nephropathy/rhabdomyolysis Creatinine trending down with IV fluids, despite CPK going up Monitor 8. Metabolic acidosis/lactic acidosis Secondary to renal failure/no symptoms/signs of infection 9. Hypernatremia Worsening Continue IV fluids (hypotonic) and monitor sodium level 10. Hypomagnesemia Replaced 11. Acute rhabdomyolysis CPK continues to trend up, 9000s today (?secondary to agitation/being in restrains) Continue IV fluids 12. Elevated troponin Mild elevation, likely nonspecific in the setting of renal failure 13. DVT/GI prophylaxis No pharmacological agent given anemia/thrombocytopenia/cirrhosis. Protonix History Interval history: no change, agitated, restless, in restraints, not answering, not following any commands no family availble Hospitalist Physical - Constitutional Vitals: Temp Pulse Resp BP Pulse Ox 99.3 F 103 H 22 129/63 100 04/22/17 07:56 04/22/17 10:00 04/22/17 07:56 04/22/17 07:56 04/22/17 03:59 General appearance: Present: mild distress, disheveled, other (in restraints) - EENT Eyes: Present: PERRL - Neck Neck: Present: supple. Absent: enlarged thyroid, masses or JVD - Respiratory Respiratory effort: normal Respiratory: bilateral: CTA, negative: rhonchi, wheezing - Cardiovascular Rhythm: other (tachycardic) Heart Sounds: Present: S1 & S2. Absent: systolic murmur - Extremities Extremities: no ischemia - Abdominal General gastrointestinal: soft, non-tender, non-distended, normal bowel sounds - Psychiatric Psychiatric: no appropriate mood/affect, no intact judgment & insight, no memory intact, agitated - Neurologic Neurologic: CNII-XII intact, no focal deficits Results - Labs CBC & Chem 7: 04/21/17 04:41 04/22/17 07:06 Labs: Laboratory Last Values WBC 9.6 K/mm3 (4.5-11.0) 04/21/17 04:41 RBC 2.98 M/mm3 (3.65-5.03) L 04/21/17 04:41 Hgb 8.7 gm/dl (10.1-14.3) L 04/21/17 04:41 Hct 26.4 % (30.3-42.9) L 04/21/17 04:41 MCV 88 fl (79-97) 04/21/17 04:41 MCH 29 pg (28-32) 04/21/17 04:41 MCHC 33 % (30-34) 04/21/17 04:41 RDW 14.9 % (13.2-15.2) 04/21/17 04:41 Plt Count 148 K/mm3 (140-440) D 04/21/17 04:41 Lymph % (Auto) 16.3 % (13.4-35.0) 04/21/17 04:41 [place] % (Auto) 9.1 % (0.0-7.3) H 04/21/17 04:41 Eos % (Auto) 1.3 % (0.0-4.3) 04/21/17 04:41 Baso % (Auto) 0.4 % (0.0-1.8) 04/21/17 04:41 Lymph # 1.6 K/mm3 (1.2-5.4) 04/21/17 04:41 [place] # 0.9 K/mm3 (0.0-0.8) H 04/21/17 04:41 Eos # 0.1 K/mm3 (0.0-0.4) 04/21/17 04:41 Baso # 0.0 K/mm3 (0.0-0.1) 04/21/17 04:41 Seg Neutrophils % 72.9 % (40.0-70.0) H 04/21/17 04:41 Seg Neutrophils # 7.0 K/mm3 (1.8-7.7) 04/21/17 04:41 PT 19.7 Sec. (12.2-14.9) H 04/21/17 04:41 INR 1.58 (0.87-1.13) H 04/21/17 04:41 Sodium 153 mmol/L (137-145) H 04/22/17 07:06 Potassium 4.6 mmol/L (3.6-5.0) 04/22/17 07:06 Chloride 116.1 mmol/L (98-107) H 04/22/17 07:06 Carbon Dioxide 21 mmol/L (22-30) L 04/22/17 07:06 Anion Gap 21 mmol/L 04/22/17 07:06 BUN 14 mg/dL (7-17) 04/22/17 07:06 Creatinine 1.1 mg/dL (0.7-1.2) 04/22/17 07:06 Estimated GFR > 60 ml/min 04/22/17 07:06 BUN/Creatinine Ratio 12.72 % 04/22/17 07:06 Glucose 100 mg/dL (65-100) 04/22/17 07:06 Lactic Acid 3.10 mmol/L (0.7-2.0) H* 04/20/17 22:40 Calcium 8.3 mg/dL (8.4-10.2) L 04/22/17 07:06 Magnesium 2.00 mg/dL (1.7-2.3) 04/21/17 04:41 Total Bilirubin 1.70 mg/dL (0.1-1.2) H 04/22/17 07:06 AST 408 units/L (5-40) H 04/22/17 07:06 ALT 120 units/L (7-56) H 04/22/17 07:06 Alkaline Phosphatase 88 units/L (35-129) 04/22/17 07:06 Ammonia 57.0 umol/L (25-60) 04/21/17 04:41 Total Creatine Kinase 9142 units/L (30-135) H 04/22/17 07:06 CK-MB (CK-2) 18.0 ng/mL (0.0-4.0) H 04/19/17 15:59 CK-MB (CK-2) Rel Index 0.9 (0-4) 04/19/17 15:59 Troponin T 0.043 ng/mL (0.00-0.029) H 04/19/17 15:59 Total Protein 6.0 g/dL (6.3-8.2) L 04/22/17 07:06 Albumin 2.5 g/dL (3.9-5) L 04/22/17 07:06 Albumin/Globulin Ratio 0.7 % 04/22/17 07:06 Triglycerides 98 mg/dL (2-149) 04/18/17 21:16 Cholesterol 82 mg/dL (50-199) 04/18/17 21:16 LDL Cholesterol Direct 26 mg/dL (50-130) L 04/18/17 21:16 HDL Cholesterol 37 mg/dL (40-59) L 04/18/17 21:16 Cholesterol/HDL Ratio 2.21 % 04/18/17 21:16 Lipase 73 units/L (13-60) H 04/22/17 07:06 TSH 2.030 mlU/mL (0.270-4.200) 04/18/17 21:16 Urine Color Yellow (Yellow) 04/18/17 22:39 Urine Turbidity Clear (Clear) 04/18/17 22:39 Urine pH 7.0 (5.0-7.0) 04/18/17 22:39 Ur Specific [place] 1.009 (1.003-1.030) 04/18/17 22:39 Urine Protein <15 mg/dl mg/dL (Negative) 04/18/17 22:39 Urine Glucose (UA) Neg mg/dL (Negative) 04/18/17 22:39 Urine Ketones Neg mg/dL (Negative) 04/18/17 22:39 Urine Blood Sm (Negative) 04/18/17 22:39 Urine Nitrite Neg (Negative) 04/18/17 22:39 Urine Bilirubin Neg (Negative) 04/18/17 22:39 Urine Urobilinogen < 2.0 mg/dL (<2.0) 04/18/17 22:39 Ur Leukocyte Esterase Neg (Negative) 04/18/17 22:39 Urine WBC (Auto) < 1.0 /HPF (0.0-6.0) 04/18/17 22:39 Urine RBC (Auto) 2.0 /HPF (0.0-6.0) 04/18/17 22:39 U Epithel Cells (Auto) < 1.0 /HPF (0-13.0) 04/18/17 22:39 Salicylates < 0.3 mg/dL (2.8-20.0) L 04/18/17 21:16 Urine Opiates Screen Presumptive negative 04/18/17 22:39 Urine Methadone Screen Presumptive negative 04/18/17 22:39 Acetaminophen < 15.0 ug/mL (10.0-30.0) 04/18/17 21:16 Ur Barbiturates Screen Presumptive negative 04/18/17 22:39 Ur Phencyclidine Scrn Presumptive negative 04/18/17 22:39 Ur Amphetamines Screen Presumptive negative 04/18/17 22:39 U Benzodiazepines Scrn Presumptive negative 04/18/17 22:39 Urine Cocaine Screen Presumptive negative 04/18/17 22:39 U Marijuana (THC) Screen Presumptive negative 04/18/17 22:39 Drugs of Abuse Note Disclamer 04/18/17 22:39 Plasma/Serum Alcohol < 0.01 gm% (0-0.07) 04/18/17 21:16
[2017-04-22] MEDS ORDERED: VITAMIN B-1 100 MG, FOLVITE 1 MG, INFUVITE 10 ML in NACL 0.9% 1000 ML 1,000 ML IV ONE (20:00)
[2017-04-22] MEDS: D5W 1,000 ML IV SCH (21:49)
[2017-04-23] MEDS: CEPHULAC PR SCH ×4 (01:54→18:09)
[2017-04-23] MEDS: HALDOL IV PRN ×2 (03:01→23:18)
[2017-04-23 05:43] LABS: Basophils % (Auto) 0.6 % (0.0-1.8); Eosinophils % (Auto) 2.1 % (0.0-4.3); Hematocrit 26.5 % (30.3-42.9); Hemoglobin 8.4 gm/dl (10.1-14.3); Mean Corpuscular HGB Conc 32 % (30-34); Mean Corpuscular Hemoglobin 28 pg (28-32); Mean Corpuscular Volume 90 fl (79-97); Platelet Count 114 K/mm3 (140-440); Red Blood Count 2.95 M/mm3 (3.65-5.03); Red Cell Distribution Width 15.1 % (13.2-15.2); White Blood Count 7.5 K/mm3 (4.5-11.0)
[2017-04-23 06:02] LABS: Alanine Aminotransferase 118 units/L (7-56); Albumin 2.4 g/dL (3.9-5); Albumin/Globulin Ratio 0.7 %; Alkaline Phosphatase 88 units/L (35-129); Anion Gap 17 mmol/L; BUN/Creatinine Ratio 8.18; Blood Urea Nitrogen 9 mg/dL (7-17); Calcium 8.4 mg/dL (8.4-10.2); Carbon Dioxide 23 mmol/L (22-30); Chloride 119.5 mmol/L (98-107); Glucose 137 mg/dL (65-100); Lipase 123 units/L (13-60); Potassium 3.5 mmol/L (3.6-5.0); Sodium 156 mmol/L (137-145); Total Protein 5.7 g/dL (6.3-8.2)
[2017-04-23 06:16] LABS: Creatine Kinase 4040 units/L (30-135)
[2017-04-23] MEDS: D5W 1,000 ML IV SCH ×2 (10:20→21:05)
[2017-04-23] MEDS: PEPCID IV SCH ×2 (10:20→21:05)
--- NOTE | 2017-04-23 17:00 | Progress Note ---
Assessment and Plan Assessment and plan: Acute toxic metabolic encephalopathy/hepatic encephalopathy with lethargy, confusion Ammonia level trended down, but no significant change in mental status Infection ruled out CT head with involutional changes ? chronic alcohol/Wernicke encephalopathy Alcoholic cirrhosis [facility] protocol Continue banana bag Supportive care Anemia Secondary to alcoholism/cirrhosis Monitor H&H Thrombocytopenia Secondary to cirrhosis likely trending up Coagulopathy Due to cirrhosis Monitor INR Malnutrition Severe, albumin 2.8 Likely due to alcoholism/cirrhosis Acute renal failure Likely secondary to vasomotor nephropathy/rhabdomyolysis Creatinine trending down with IV fluids, 1.1 today. Metabolic acidosis/lactic acidosis Secondary to renal failure/no symptoms/signs of infection Hypernatremia Worsening. Sodium 156 today IV fluid changed to 5% dextrose. Hypomagnesemia Replaced Acute rhabdomyolysis Creatinie kinase 4040 today improved from yesterday Continue IV fluids Elevated troponin Mild elevation, nonspecific in the setting of renal failure,rhabdomyolysis DVT prophylaxis with SCDs only No pharmacological agent given because of anemia/thrombocytopenia/cirrhosis. Peptic ulcer disease prophylaxis with Protonix. History Interval history: Altered mental status, confused, agitated Hospitalist Physical - Physical exam Narrative exam: Gen Appearance: Not in acute distress HEENT: normocephalic, atraumatic Neck: supple, no JVD Lungs: Clear to auscultation, bilaterally, no rales, no wheeze Heart: S1 and S2 regular, no murmurs, rubs or gallop Abdomen: Soft , non tender, non distended, normal bowel sounds Extremity: No edema, no clubbing or cyanosis Neuro : Confused, moves all extremities - Constitutional Vitals: Temp Pulse Resp BP Pulse Ox 98.8 F 104 H 20 127/78 96 04/23/17 12:41 04/23/17 12:41 04/23/17 12:41 04/23/17 12:41 04/23/17 12:41 General appearance: Present: mild distress, disheveled, other (in restraints) Results - Labs CBC & Chem 7: 04/23/17 05:17 04/23/17 05:17 Labs: Laboratory Last Values WBC 7.5 K/mm3 (4.5-11.0) 04/23/17 05:17 RBC 2.95 M/mm3 (3.65-5.03) L 04/23/17 05:17 Hgb 8.4 gm/dl (10.1-14.3) L 04/23/17 05:17 Hct 26.5 % (30.3-42.9) L 04/23/17 05:17 MCV 90 fl (79-97) 04/23/17 05:17 MCH 28 pg (28-32) 04/23/17 05:17 MCHC 32 % (30-34) 04/23/17 05:17 RDW 15.1 % (13.2-15.2) 04/23/17 05:17 Plt Count 114 K/mm3 (140-440) L 04/23/17 05:17 Lymph % (Auto) 16.8 % (13.4-35.0) 04/23/17 05:17 [place] % (Auto) 8.6 % (0.0-7.3) H 04/23/17 05:17 Eos % (Auto) 2.1 % (0.0-4.3) 04/23/17 05:17 Baso % (Auto) 0.6 % (0.0-1.8) 04/23/17 05:17 Lymph # 1.3 K/mm3 (1.2-5.4) 04/23/17 05:17 [place] # 0.6 K/mm3 (0.0-0.8) 04/23/17 05:17 Eos # 0.2 K/mm3 (0.0-0.4) 04/23/17 05:17 Baso # 0.0 K/mm3 (0.0-0.1) 04/23/17 05:17 Seg Neutrophils % 71.9 % (40.0-70.0) H 04/23/17 05:17 Seg Neutrophils # 5.4 K/mm3 (1.8-7.7) 04/23/17 05:17 PT 19.7 Sec. (12.2-14.9) H 04/21/17 04:41 INR 1.58 (0.87-1.13) H 04/21/17 04:41 Sodium 156 mmol/L (137-145) H 04/23/17 05:17 Potassium 3.5 mmol/L (3.6-5.0) L D 04/23/17 05:17 Chloride 119.5 mmol/L (98-107) H 04/23/17 05:17 Carbon Dioxide 23 mmol/L (22-30) 04/23/17 05:17 Anion Gap 17 mmol/L 04/23/17 05:17 BUN 9 mg/dL (7-17) 04/23/17 05:17 Creatinine 1.1 mg/dL (0.7-1.2) 04/23/17 05:17 Estimated GFR > 60 ml/min 04/23/17 05:17 BUN/Creatinine Ratio 8.18 % 04/23/17 05:17 Glucose 137 mg/dL (65-100) H 04/23/17 05:17 Lactic Acid 3.10 mmol/L (0.7-2.0) H* 04/20/17 22:40 Calcium 8.4 mg/dL (8.4-10.2) 04/23/17 05:17 Magnesium 2.00 mg/dL (1.7-2.3) 04/21/17 04:41 Total Bilirubin 1.60 mg/dL (0.1-1.2) H 04/23/17 05:17 AST 345 units/L (5-40) H 04/23/17 05:17 ALT 118 units/L (7-56) H 04/23/17 05:17 Alkaline Phosphatase 88 units/L (35-129) 04/23/17 05:17 Ammonia 55.0 umol/L (25-60) 04/23/17 05:17 Total Creatine Kinase 4040 units/L (30-135) H 04/23/17 05:17 CK-MB (CK-2) 18.0 ng/mL (0.0-4.0) H 04/19/17 15:59 CK-MB (CK-2) Rel Index 0.9 (0-4) 04/19/17 15:59 Troponin T 0.043 ng/mL (0.00-0.029) H 04/19/17 15:59 Total Protein 5.7 g/dL (6.3-8.2) L 04/23/17 05:17 Albumin 2.4 g/dL (3.9-5) L 04/23/17 05:17 Albumin/Globulin Ratio 0.7 % 04/23/17 05:17 Triglycerides 98 mg/dL (2-149) 04/18/17 21:16 Cholesterol 82 mg/dL (50-199) 04/18/17 21:16 LDL Cholesterol Direct 26 mg/dL (50-130) L 04/18/17 21:16 HDL Cholesterol 37 mg/dL (40-59) L 04/18/17 21:16 Cholesterol/HDL Ratio 2.21 % 04/18/17 21:16 Lipase 123 units/L (13-60) H 04/23/17 05:17 TSH 2.030 mlU/mL (0.270-4.200) 04/18/17 21:16 Urine Color Yellow (Yellow) 04/18/17 22:39 Urine Turbidity Clear (Clear) 04/18/17 22:39 Urine pH 7.0 (5.0-7.0) 04/18/17 22:39 Ur Specific [place] 1.009 (1.003-1.030) 04/18/17 22:39 Urine Protein <15 mg/dl mg/dL (Negative) 04/18/17 22:39 Urine Glucose (UA) Neg mg/dL (Negative) 04/18/17 22:39 Urine Ketones Neg mg/dL (Negative) 04/18/17 22:39 Urine Blood Sm (Negative) 04/18/17 22:39 Urine Nitrite Neg (Negative) 04/18/17 22:39 Urine Bilirubin Neg (Negative) 04/18/17 22:39 Urine Urobilinogen < 2.0 mg/dL (<2.0) 04/18/17 22:39 Ur Leukocyte Esterase Neg (Negative) 04/18/17 22:39 Urine WBC (Auto) < 1.0 /HPF (0.0-6.0) 04/18/17 22:39 Urine RBC (Auto) 2.0 /HPF (0.0-6.0) 04/18/17 22:39 U Epithel Cells (Auto) < 1.0 /HPF (0-13.0) 04/18/17 22:39 Salicylates < 0.3 mg/dL (2.8-20.0) L 04/18/17 21:16 Urine Opiates Screen Presumptive negative 04/18/17 22:39 Urine Methadone Screen Presumptive negative 04/18/17 22:39 Acetaminophen < 15.0 ug/mL (10.0-30.0) 04/18/17 21:16 Ur Barbiturates Screen Presumptive negative 04/18/17 22:39 Ur Phencyclidine Scrn Presumptive negative 04/18/17 22:39 Ur Amphetamines Screen Presumptive negative 04/18/17 22:39 U Benzodiazepines Scrn Presumptive negative 04/18/17 22:39 Urine Cocaine Screen Presumptive negative 04/18/17 22:39 U Marijuana (THC) Screen Presumptive negative 04/18/17 22:39 Drugs of Abuse Note Disclamer 04/18/17 22:39 Plasma/Serum Alcohol < 0.01 gm% (0-0.07) 04/18/17 21:16
--- NOTE | 2017-04-24 01:22 | XRay Report ---
FINAL REPORT EXAM: XR ABDOMEN 1V AP HISTORY: check placement of dobbhoff COMPARISON: April 22, 2017. FINDINGS: AP view of the upper abdomen and chest obtained. Distal tip of feeding tube projects over the mid stomach region. This could be advanced another 10 centimeters to be within the duodenum. Nonspecific flame shaped opacity right upper lung concerning for pneumonia. IMPRESSION: Distal tip of feeding tube projects over the mid stomach. Small nonspecific nodular consolidation right upper lung concerning for pneumonia. Followup exam suggested to assess stability versus resolution.
[2017-04-24] MEDS: CEPHULAC PR SCH ×2 (01:33→07:09)
--- NOTE | 2017-04-24 03:18 | XRay Report ---
FINAL REPORT EXAM: XR ABDOMEN 1V AP HISTORY: tube placement COMPARISON: April 24, 2017. FINDINGS: AP view of the upper abdomen obtained. Distal tip of feeding tube projects over the distal stomach region. This could be advanced another 4 centimeters to be within the duodenum. IMPRESSION: Distal tip of the feeding tube projects over the distal stomach region.
--- NOTE | 2017-04-24 04:58 | XRay Report ---
FINAL REPORT PROCEDURE: XR ABDOMEN 1V AP TECHNIQUE: AP supine portable radiograph of the abdomen was obtained at 04/24/2017 04:20 (EST) . HISTORY: tube placement COMPARISON: No prior studies are available for comparison. FINDINGS: Bowel gas pattern: Nonobstructive. Masses or calcifications: None. Bony structures: Normal. Other: There is an NG tube in the antrum of the stomach.. IMPRESSION: No acute abnormality. The NG tube is in the antrum of the stomach.
[2017-04-24] MEDS: D5W 1,000 ML IV SCH ×2 (07:38→22:23)
[2017-04-24] MEDS: PEPCID IV SCH ×2 (11:29→22:24)
[2017-04-24 16:31] LABS: Hematocrit 26.2 % (30.3-42.9); Hemoglobin 8.5 gm/dl (10.1-14.3); Mean Corpuscular HGB Conc 33 % (30-34); Mean Corpuscular Hemoglobin 29 pg (28-32); Mean Corpuscular Volume 90 fl (79-97); Red Blood Count 2.91 M/mm3 (3.65-5.03); Red Cell Distribution Width 14.9 % (13.2-15.2); White Blood Count 5.3 K/mm3 (4.5-11.0)
[2017-04-24 16:32] LABS: Platelet Count 93 K/mm3 (140-440)
[2017-04-24 16:39] LABS: Alanine Aminotransferase 93 units/L (7-56); Albumin 2.1 g/dL (3.9-5); Albumin/Globulin Ratio 0.7 %; Alkaline Phosphatase 81 units/L (35-129); Anion Gap 13 mmol/L; BUN/Creatinine Ratio 4.44; Blood Urea Nitrogen 4 mg/dL (7-17); Calcium 7.8 mg/dL (8.4-10.2); Carbon Dioxide 25 mmol/L (22-30); Glucose 111 mg/dL (65-100); Potassium 3.5 mmol/L (3.6-5.0); Sodium 146 mmol/L (137-145); Total Protein 5.3 g/dL (6.3-8.2)
--- NOTE | 2017-04-24 17:24 | Progress Note ---
Assessment and Plan Assessment and plan: Acute toxic metabolic encephalopathy/hepatic encephalopathy with lethargy, confusion Ammonia level now normal Less confused and less lrthargic today compared to yesterday Infection ruled out CT head with involutional changes Alcoholic cirrhosis [facility] protocol Continue banana bag Supportive care Anemia Secondary to alcoholism/cirrhosis Monitor H&H Thrombocytopenia Secondary to cirrhosis likely trending up Coagulopathy Due to cirrhosis Monitor INR Malnutrition Severe, albumin 2.8 Likely due to alcoholism/cirrhosis Acute renal failure Likely secondary to vasomotor nephropathy/rhabdomyolysis Creatinine trending down with IV fluids, 1.1 today. Metabolic acidosis/lactic acidosis Secondary to renal failure/no symptoms/signs of infection Hypernatremia Much improved, Sodium 146 today Will decrease 5% Dextrose rate Hypomagnesemia Replaced Acute rhabdomyolysis Creatinie kinase 4040 yesterday improving Continue IV fluids Elevated troponin Mild elevation, nonspecific in the setting of renal failure,rhabdomyolysis DVT prophylaxis with SCDs only No pharmacological agent given because of anemia/thrombocytopenia/cirrhosis. Peptic ulcer disease prophylaxis with Protonix. History Interval history: Altered mental status, Still confused but improving, Still agitated-removed Dobhoff tube Hospitalist Physical - Physical exam Narrative exam: Gen Appearance: Not in acute distress HEENT: normocephalic, atraumatic Neck: supple, no JVD Lungs: Clear to auscultation, bilaterally, no rales, no wheeze Heart: S1 and S2 regular, no murmurs, rubs or gallop Abdomen: Soft , non tender, non distended, normal bowel sounds Extremity: No edema, no clubbing or cyanosis Neuro : Confused, lethargic,moves all extremities - Constitutional Vitals: Temp Pulse Resp BP Pulse Ox 98.7 F 90 20 120/69 95 04/24/17 06:02 04/24/17 06:02 04/24/17 06:02 04/24/17 06:02 04/24/17 06:02 General appearance: Present: mild distress, disheveled, other (in restraints) Results - Labs CBC & Chem 7: 04/24/17 15:31 04/24/17 15:31 Labs: Laboratory Last Values WBC 5.3 K/mm3 (4.5-11.0) 04/24/17 15:31 RBC 2.91 M/mm3 (3.65-5.03) L 04/24/17 15:31 Hgb 8.5 gm/dl (10.1-14.3) L 04/24/17 15:31 Hct 26.2 % (30.3-42.9) L 04/24/17 15:31 MCV 90 fl (79-97) 04/24/17 15:31 MCH 29 pg (28-32) 04/24/17 15:31 MCHC 33 % (30-34) 04/24/17 15:31 RDW 14.9 % (13.2-15.2) 04/24/17 15:31 Plt Count 93 K/mm3 (140-440) L 04/24/17 15:31 Lymph % (Auto) 16.8 % (13.4-35.0) 04/23/17 05:17 [place] % (Auto) 8.6 % (0.0-7.3) H 04/23/17 05:17 Eos % (Auto) 2.1 % (0.0-4.3) 04/23/17 05:17 Baso % (Auto) 0.6 % (0.0-1.8) 04/23/17 05:17 Lymph # 1.3 K/mm3 (1.2-5.4) 04/23/17 05:17 [place] # 0.6 K/mm3 (0.0-0.8) 04/23/17 05:17 Eos # 0.2 K/mm3 (0.0-0.4) 04/23/17 05:17 Baso # 0.0 K/mm3 (0.0-0.1) 04/23/17 05:17 Seg Neutrophils % 71.9 % (40.0-70.0) H 04/23/17 05:17 Seg Neutrophils # 5.4 K/mm3 (1.8-7.7) 04/23/17 05:17 PT 19.7 Sec. (12.2-14.9) H 04/21/17 04:41 INR 1.58 (0.87-1.13) H 04/21/17 04:41 Sodium 146 mmol/L (137-145) H D 04/24/17 15:31 Potassium 3.5 mmol/L (3.6-5.0) L 04/24/17 15:31 Chloride 112.0 mmol/L (98-107) H 04/24/17 15:31 Carbon Dioxide 25 mmol/L (22-30) 04/24/17 15:31 Anion Gap 13 mmol/L 04/24/17 15:31 BUN 4 mg/dL (7-17) L 04/24/17 15:31 Creatinine 0.9 mg/dL (0.7-1.2) 04/24/17 15:31 Estimated GFR > 60 ml/min 04/24/17 15:31 BUN/Creatinine Ratio 4.44 % 04/24/17 15:31 Glucose 111 mg/dL (65-100) H 04/24/17 15:31 Lactic Acid 3.10 mmol/L (0.7-2.0) H* 04/20/17 22:40 Calcium 7.8 mg/dL (8.4-10.2) L 04/24/17 15:31 Magnesium 2.00 mg/dL (1.7-2.3) 04/21/17 04:41 Total Bilirubin 1.60 mg/dL (0.1-1.2) H 04/24/17 15:31 AST 212 units/L (5-40) H 04/24/17 15:31 ALT 93 units/L (7-56) H 04/24/17 15:31 Alkaline Phosphatase 81 units/L (35-129) 04/24/17 15:31 Ammonia 55.0 umol/L (25-60) 04/23/17 05:17 Total Creatine Kinase 4040 units/L (30-135) H 04/23/17 05:17 CK-MB (CK-2) 18.0 ng/mL (0.0-4.0) H 04/19/17 15:59 CK-MB (CK-2) Rel Index 0.9 (0-4) 04/19/17 15:59 Troponin T 0.043 ng/mL (0.00-0.029) H 04/19/17 15:59 Total Protein 5.3 g/dL (6.3-8.2) L 04/24/17 15:31 Albumin 2.1 g/dL (3.9-5) L 04/24/17 15:31 Albumin/Globulin Ratio 0.7 % 04/24/17 15:31 Triglycerides 98 mg/dL (2-149) 04/18/17 21:16 Cholesterol 82 mg/dL (50-199) 04/18/17 21:16 LDL Cholesterol Direct 26 mg/dL (50-130) L 04/18/17 21:16 HDL Cholesterol 37 mg/dL (40-59) L 04/18/17 21:16 Cholesterol/HDL Ratio 2.21 % 04/18/17 21:16 Lipase 123 units/L (13-60) H 04/23/17 05:17 TSH 2.030 mlU/mL (0.270-4.200) 04/18/17 21:16 Urine Color Yellow (Yellow) 04/18/17 22:39 Urine Turbidity Clear (Clear) 04/18/17 22:39 Urine pH 7.0 (5.0-7.0) 04/18/17 22:39 Ur Specific [place] 1.009 (1.003-1.030) 04/18/17 22:39 Urine Protein <15 mg/dl mg/dL (Negative) 04/18/17 22:39 Urine Glucose (UA) Neg mg/dL (Negative) 04/18/17 22:39 Urine Ketones Neg mg/dL (Negative) 04/18/17 22:39 Urine Blood Sm (Negative) 04/18/17 22:39 Urine Nitrite Neg (Negative) 04/18/17 22:39 Urine Bilirubin Neg (Negative) 04/18/17 22:39 Urine Urobilinogen < 2.0 mg/dL (<2.0) 04/18/17 22:39 Ur Leukocyte Esterase Neg (Negative) 04/18/17 22:39 Urine WBC (Auto) < 1.0 /HPF (0.0-6.0) 04/18/17 22:39 Urine RBC (Auto) 2.0 /HPF (0.0-6.0) 04/18/17 22:39 U Epithel Cells (Auto) < 1.0 /HPF (0-13.0) 04/18/17 22:39 Salicylates < 0.3 mg/dL (2.8-20.0) L 04/18/17 21:16 Urine Opiates Screen Presumptive negative 04/18/17 22:39 Urine Methadone Screen Presumptive negative 04/18/17 22:39 Acetaminophen < 15.0 ug/mL (10.0-30.0) 04/18/17 21:16 Ur Barbiturates Screen Presumptive negative 04/18/17 22:39 Ur Phencyclidine Scrn Presumptive negative 04/18/17 22:39 Ur Amphetamines Screen Presumptive negative 04/18/17 22:39 U Benzodiazepines Scrn Presumptive negative 04/18/17 22:39 Urine Cocaine Screen Presumptive negative 04/18/17 22:39 U Marijuana (THC) Screen Presumptive negative 04/18/17 22:39 Drugs of Abuse Note Disclamer 04/18/17 22:39 Plasma/Serum Alcohol < 0.01 gm% (0-0.07) 04/18/17 21:16
[2017-04-25 06:21] LABS: Anion Gap 17 mmol/L; BUN/Creatinine Ratio 7.77; Blood Urea Nitrogen 7 mg/dL (7-17); Calcium 7.7 mg/dL (8.4-10.2); Carbon Dioxide 23 mmol/L (22-30); Chloride 103.9 mmol/L (98-107); Glucose 117 mg/dL (65-100); Potassium 3.4 mmol/L (3.6-5.0); Sodium 140 mmol/L (137-145)
[2017-04-25] MEDS ORDERED: CEPHULAC PR SCH (10:00)
[2017-04-25] MEDS: D5W 1,000 ML IV SCH (10:30)
[2017-04-25] MEDS: PEPCID IV SCH ×2 (10:30→22:13)
--- NOTE | 2017-04-25 11:12 | Progress Note ---
Assessment and Plan Assessment and plan: Acute toxic metabolic encephalopathy/hepatic encephalopathy with lethargy, confusion Ammonia level now normal Less confused and less lethargic today compared to yesterday Infection ruled out CT head with involutional changes Alcoholic cirrhosis [facility] protocol Continue banana bag Supportive care Anemia Secondary to alcoholism/cirrhosis Monitor H&H Thrombocytopenia Secondary to cirrhosis likely trending up Coagulopathy Due to cirrhosis Monitor INR Malnutrition Severe, albumin 2.8 Likely due to alcoholism/cirrhosis Acute renal failure Likely secondary to vasomotor nephropathy/rhabdomyolysis Creatinine trending down with IV fluids, 0.9 today. Metabolic acidosis/lactic acidosis Secondary to renal failure/no symptoms/signs of infection Hypernatremia Now resolved. sodium 140 today Hypomagnesemia Replaced Acute rhabdomyolysis Creatinie kinase 909 today. Continue IV fluids Elevated troponin Mild elevation, nonspecific in the setting of renal failure,rhabdomyolysis DVT prophylaxis with SCDs only No pharmacological agent given because of anemia/thrombocytopenia/cirrhosis. Peptic ulcer disease prophylaxis with Protonix. History Interval history: Altered mental status, Still confused but improving, Still agitated-removed Dobhoff tube Hospitalist Physical - Physical exam Narrative exam: Gen Appearance: Not in acute distress HEENT: normocephalic, atraumatic Neck: supple, no JVD Lungs: Clear to auscultation, bilaterally, no rales, no wheeze Heart: S1 and S2 regular, no murmurs, rubs or gallop Abdomen: Soft , non tender, non distended, normal bowel sounds Extremity: No edema, no clubbing or cyanosis Neuro : Confused, lethargic,moves all extremities - Constitutional Vitals: Temp Pulse Resp BP Pulse Ox 99.3 F 93 H 20 118/70 98 04/25/17 08:44 04/25/17 08:44 04/25/17 08:44 04/25/17 08:44 04/25/17 08:44 General appearance: Present: mild distress, disheveled, other (in restraints) Results - Labs CBC & Chem 7: 04/24/17 15:31 04/26/17 09:04 Labs: Laboratory Last Values WBC 5.3 K/mm3 (4.5-11.0) 04/24/17 15:31 RBC 2.91 M/mm3 (3.65-5.03) L 04/24/17 15:31 Hgb 8.5 gm/dl (10.1-14.3) L 04/24/17 15:31 Hct 26.2 % (30.3-42.9) L 04/24/17 15:31 MCV 90 fl (79-97) 04/24/17 15:31 MCH 29 pg (28-32) 04/24/17 15:31 MCHC 33 % (30-34) 04/24/17 15:31 RDW 14.9 % (13.2-15.2) 04/24/17 15:31 Plt Count 93 K/mm3 (140-440) L 04/24/17 15:31 Lymph % (Auto) 16.8 % (13.4-35.0) 04/23/17 05:17 [place] % (Auto) 8.6 % (0.0-7.3) H 04/23/17 05:17 Eos % (Auto) 2.1 % (0.0-4.3) 04/23/17 05:17 Baso % (Auto) 0.6 % (0.0-1.8) 04/23/17 05:17 Lymph # 1.3 K/mm3 (1.2-5.4) 04/23/17 05:17 [place] # 0.6 K/mm3 (0.0-0.8) 04/23/17 05:17 Eos # 0.2 K/mm3 (0.0-0.4) 04/23/17 05:17 Baso # 0.0 K/mm3 (0.0-0.1) 04/23/17 05:17 Seg Neutrophils % 71.9 % (40.0-70.0) H 04/23/17 05:17 Seg Neutrophils # 5.4 K/mm3 (1.8-7.7) 04/23/17 05:17 PT 19.7 Sec. (12.2-14.9) H 04/21/17 04:41 INR 1.58 (0.87-1.13) H 04/21/17 04:41 Sodium 140 mmol/L (137-145) 04/25/17 05:36 Potassium 3.4 mmol/L (3.6-5.0) L 04/25/17 05:36 Chloride 103.9 mmol/L (98-107) 04/25/17 05:36 Carbon Dioxide 23 mmol/L (22-30) 04/25/17 05:36 Anion Gap 17 mmol/L 04/25/17 05:36 BUN 7 mg/dL (7-17) 04/25/17 05:36 Creatinine 0.9 mg/dL (0.7-1.2) 04/25/17 05:36 Estimated GFR > 60 ml/min 04/25/17 05:36 BUN/Creatinine Ratio 7.77 % 04/25/17 05:36 Glucose 117 mg/dL (65-100) H 04/25/17 05:36 Lactic Acid 3.10 mmol/L (0.7-2.0) H* 04/20/17 22:40 Calcium 7.7 mg/dL (8.4-10.2) L 04/25/17 05:36 Magnesium 2.00 mg/dL (1.7-2.3) 04/21/17 04:41 Total Bilirubin 1.60 mg/dL (0.1-1.2) H 04/24/17 15:31 AST 212 units/L (5-40) H 04/24/17 15:31 ALT 93 units/L (7-56) H 04/24/17 15:31 Alkaline Phosphatase 81 units/L (35-129) 04/24/17 15:31 Ammonia 55.0 umol/L (25-60) 04/23/17 05:17 Total Creatine Kinase 909 units/L (30-135) H 04/25/17 05:36 CK-MB (CK-2) 18.0 ng/mL (0.0-4.0) H 04/19/17 15:59 CK-MB (CK-2) Rel Index 0.9 (0-4) 04/19/17 15:59 Troponin T 0.043 ng/mL (0.00-0.029) H 04/19/17 15:59 Total Protein 5.3 g/dL (6.3-8.2) L 04/24/17 15:31 Albumin 2.1 g/dL (3.9-5) L 04/24/17 15:31 Albumin/Globulin Ratio 0.7 % 04/24/17 15:31 Triglycerides 98 mg/dL (2-149) 04/18/17 21:16 Cholesterol 82 mg/dL (50-199) 04/18/17 21:16 LDL Cholesterol Direct 26 mg/dL (50-130) L 04/18/17 21:16 HDL Cholesterol 37 mg/dL (40-59) L 04/18/17 21:16 Cholesterol/HDL Ratio 2.21 % 04/18/17 21:16 Lipase 123 units/L (13-60) H 04/23/17 05:17 TSH 2.030 mlU/mL (0.270-4.200) 04/18/17 21:16 Urine Color Yellow (Yellow) 04/18/17 22:39 Urine Turbidity Clear (Clear) 04/18/17 22:39 Urine pH 7.0 (5.0-7.0) 04/18/17 22:39 Ur Specific [place] 1.009 (1.003-1.030) 04/18/17 22:39 Urine Protein <15 mg/dl mg/dL (Negative) 04/18/17 22:39 Urine Glucose (UA) Neg mg/dL (Negative) 04/18/17 22:39 Urine Ketones Neg mg/dL (Negative) 04/18/17 22:39 Urine Blood Sm (Negative) 04/18/17 22:39 Urine Nitrite Neg (Negative) 04/18/17 22:39 Urine Bilirubin Neg (Negative) 04/18/17 22:39 Urine Urobilinogen < 2.0 mg/dL (<2.0) 04/18/17 22:39 Ur Leukocyte Esterase Neg (Negative) 04/18/17 22:39 Urine WBC (Auto) < 1.0 /HPF (0.0-6.0) 04/18/17 22:39 Urine RBC (Auto) 2.0 /HPF (0.0-6.0) 04/18/17 22:39 U Epithel Cells (Auto) < 1.0 /HPF (0-13.0) 04/18/17 22:39 Salicylates < 0.3 mg/dL (2.8-20.0) L 04/18/17 21:16 Urine Opiates Screen Presumptive negative 04/18/17 22:39 Urine Methadone Screen Presumptive negative 04/18/17 22:39 Acetaminophen < 15.0 ug/mL (10.0-30.0) 04/18/17 21:16 Ur Barbiturates Screen Presumptive negative 04/18/17 22:39 Ur Phencyclidine Scrn Presumptive negative 04/18/17 22:39 Ur Amphetamines Screen Presumptive negative 04/18/17 22:39 U Benzodiazepines Scrn Presumptive negative 04/18/17 22:39 Urine Cocaine Screen Presumptive negative 04/18/17 22:39 U Marijuana (THC) Screen Presumptive negative 04/18/17 22:39 Drugs of Abuse Note Disclamer 04/18/17 22:39 Plasma/Serum Alcohol < 0.01 gm% (0-0.07) 04/18/17 21:16
[2017-04-25] MEDS: ZOFRAN IV PRN (22:13)
[2017-04-26] MEDS: D5W 1,000 ML IV SCH (01:37)
--- NOTE | 2017-04-26 08:40 | Progress Note ---
Assessment and Plan Assessment and plan: Acute toxic metabolic encephalopathy/hepatic encephalopathy with lethargy, confusion Ammonia level elevated at 136 today. Start oral ammonia , discontinue rectal ammonia Less confused and less lethargic today compared to yesterday Infection ruled out CT head with involutional changes Alcoholic cirrhosis [facility] protocol Continue banana bag Supportive care Anemia Secondary to alcoholism/cirrhosis Monitor H&H Thrombocytopenia Secondary to cirrhosis likely Coagulopathy Due to cirrhosis Monitor INR Malnutrition Severe, albumin 2.8 Likely due to alcoholism/cirrhosis Acute renal failure Likely secondary to vasomotor nephropathy/rhabdomyolysis Creatinine trending down with IV fluids, 0.9 today. Metabolic acidosis/lactic acidosis Secondary to renal failure/no symptoms/signs of infection Hypernatremia Now resolved. sodium 137 today Hypomagnesemia Replaced Acute rhabdomyolysis Creatinie kinase down to 688 today. Will discontinue iv fluids Elevated troponin Mild elevation, nonspecific in the setting of renal failure,rhabdomyolysis DVT prophylaxis with SCDs only No pharmacological agent given because of anemia/thrombocytopenia/cirrhosis. Peptic ulcer disease prophylaxis with Protonix. History Interval history: Altered mental status, Still confused but improving, Still agitated on and off Hospitalist Physical - Physical exam Narrative exam: Gen Appearance: Not in acute distress HEENT: normocephalic, atraumatic Neck: supple, no JVD Lungs: Clear to auscultation, bilaterally, no rales, no wheeze Heart: S1 and S2 regular, no murmurs, rubs or gallop Abdomen: Soft , non tender, non distended, normal bowel sounds Extremity: No edema, no clubbing or cyanosis Neuro : Confused, lethargic,moves all extremities - Constitutional Vitals: Temp Pulse Resp BP Pulse Ox 99.3 F 89 18 91/51 95 04/26/17 08:00 04/26/17 08:00 04/26/17 08:00 04/26/17 08:00 04/26/17 08:00 General appearance: Present: mild distress, disheveled, other (in restraints) Results - Labs CBC & Chem 7: 04/24/17 15:31 04/26/17 09:04 Labs: Laboratory Last Values WBC 5.3 K/mm3 (4.5-11.0) 04/24/17 15:31 RBC 2.91 M/mm3 (3.65-5.03) L 04/24/17 15:31 Hgb 8.5 gm/dl (10.1-14.3) L 04/24/17 15:31 Hct 26.2 % (30.3-42.9) L 04/24/17 15:31 MCV 90 fl (79-97) 04/24/17 15:31 MCH 29 pg (28-32) 04/24/17 15:31 MCHC 33 % (30-34) 04/24/17 15:31 RDW 14.9 % (13.2-15.2) 04/24/17 15:31 Plt Count 93 K/mm3 (140-440) L 04/24/17 15:31 Lymph % (Auto) 16.8 % (13.4-35.0) 04/23/17 05:17 [place] % (Auto) 8.6 % (0.0-7.3) H 04/23/17 05:17 Eos % (Auto) 2.1 % (0.0-4.3) 04/23/17 05:17 Baso % (Auto) 0.6 % (0.0-1.8) 04/23/17 05:17 Lymph # 1.3 K/mm3 (1.2-5.4) 04/23/17 05:17 [place] # 0.6 K/mm3 (0.0-0.8) 04/23/17 05:17 Eos # 0.2 K/mm3 (0.0-0.4) 04/23/17 05:17 Baso # 0.0 K/mm3 (0.0-0.1) 04/23/17 05:17 Seg Neutrophils % 71.9 % (40.0-70.0) H 04/23/17 05:17 Seg Neutrophils # 5.4 K/mm3 (1.8-7.7) 04/23/17 05:17 PT 19.7 Sec. (12.2-14.9) H 04/21/17 04:41 INR 1.58 (0.87-1.13) H 04/21/17 04:41 Sodium 140 mmol/L (137-145) 04/25/17 05:36 Potassium 3.4 mmol/L (3.6-5.0) L 04/25/17 05:36 Chloride 103.9 mmol/L (98-107) 04/25/17 05:36 Carbon Dioxide 23 mmol/L (22-30) 04/25/17 05:36 Anion Gap 17 mmol/L 04/25/17 05:36 BUN 7 mg/dL (7-17) 04/25/17 05:36 Creatinine 0.9 mg/dL (0.7-1.2) 04/25/17 05:36 Estimated GFR > 60 ml/min 04/25/17 05:36 BUN/Creatinine Ratio 7.77 % 04/25/17 05:36 Glucose 117 mg/dL (65-100) H 04/25/17 05:36 POC Glucose 127 (70-105) H 04/25/17 21:54 Lactic Acid 3.10 mmol/L (0.7-2.0) H* 04/20/17 22:40 Calcium 7.7 mg/dL (8.4-10.2) L 04/25/17 05:36 Magnesium 2.00 mg/dL (1.7-2.3) 04/21/17 04:41 Total Bilirubin 1.60 mg/dL (0.1-1.2) H 04/24/17 15:31 AST 212 units/L (5-40) H 04/24/17 15:31 ALT 93 units/L (7-56) H 04/24/17 15:31 Alkaline Phosphatase 81 units/L (35-129) 04/24/17 15:31 Ammonia 55.0 umol/L (25-60) 04/23/17 05:17 Total Creatine Kinase 909 units/L (30-135) H 04/25/17 05:36 CK-MB (CK-2) 18.0 ng/mL (0.0-4.0) H 04/19/17 15:59 CK-MB (CK-2) Rel Index 0.9 (0-4) 04/19/17 15:59 Troponin T 0.043 ng/mL (0.00-0.029) H 04/19/17 15:59 Total Protein 5.3 g/dL (6.3-8.2) L 04/24/17 15:31 Albumin 2.1 g/dL (3.9-5) L 04/24/17 15:31 Albumin/Globulin Ratio 0.7 % 04/24/17 15:31 Triglycerides 98 mg/dL (2-149) 04/18/17 21:16 Cholesterol 82 mg/dL (50-199) 04/18/17 21:16 LDL Cholesterol Direct 26 mg/dL (50-130) L 04/18/17 21:16 HDL Cholesterol 37 mg/dL (40-59) L 04/18/17 21:16 Cholesterol/HDL Ratio 2.21 % 04/18/17 21:16 Lipase 123 units/L (13-60) H 04/23/17 05:17 TSH 2.030 mlU/mL (0.270-4.200) 04/18/17 21:16 Urine Color Yellow (Yellow) 04/18/17 22:39 Urine Turbidity Clear (Clear) 04/18/17 22:39 Urine pH 7.0 (5.0-7.0) 04/18/17 22:39 Ur Specific [place] 1.009 (1.003-1.030) 04/18/17 22:39 Urine Protein <15 mg/dl mg/dL (Negative) 04/18/17 22:39 Urine Glucose (UA) Neg mg/dL (Negative) 04/18/17 22:39 Urine Ketones Neg mg/dL (Negative) 04/18/17 22:39 Urine Blood Sm (Negative) 04/18/17 22:39 Urine Nitrite Neg (Negative) 04/18/17 22:39 Urine Bilirubin Neg (Negative) 04/18/17 22:39 Urine Urobilinogen < 2.0 mg/dL (<2.0) 04/18/17 22:39 Ur Leukocyte Esterase Neg (Negative) 04/18/17 22:39 Urine WBC (Auto) < 1.0 /HPF (0.0-6.0) 04/18/17 22:39 Urine RBC (Auto) 2.0 /HPF (0.0-6.0) 04/18/17 22:39 U Epithel Cells (Auto) < 1.0 /HPF (0-13.0) 04/18/17 22:39 Salicylates < 0.3 mg/dL (2.8-20.0) L 04/18/17 21:16 Urine Opiates Screen Presumptive negative 04/18/17 22:39 Urine Methadone Screen Presumptive negative 04/18/17 22:39 Acetaminophen < 15.0 ug/mL (10.0-30.0) 04/18/17 21:16 Ur Barbiturates Screen Presumptive negative 04/18/17 22:39 Ur Phencyclidine Scrn Presumptive negative 04/18/17 22:39 Ur Amphetamines Screen Presumptive negative 04/18/17 22:39 U Benzodiazepines Scrn Presumptive negative 04/18/17 22:39 Urine Cocaine Screen Presumptive negative 04/18/17 22:39 U Marijuana (THC) Screen Presumptive negative 04/18/17 22:39 Drugs of Abuse Note Disclamer 04/18/17 22:39 Plasma/Serum Alcohol < 0.01 gm% (0-0.07) 04/18/17 21:16
[2017-04-26 09:55] LABS: Anion Gap 18 mmol/L; BUN/Creatinine Ratio 16.66; Blood Urea Nitrogen 15 mg/dL (7-17); Calcium 7.9 mg/dL (8.4-10.2); Carbon Dioxide 23 mmol/L (22-30); Creatine Kinase 688 units/L (30-135); Glucose 111 mg/dL (65-100); Potassium 3.5 mmol/L (3.6-5.0); Sodium 137 mmol/L (137-145)
[2017-04-26] MEDS ORDERED: K-DUR PO SCH (11:00)
[2017-04-26 13:15] LABS: Magnesium 1.5 mg/dL (1.7-2.3); Phosphorous 2.1 mg/dL (2.5-4.5)
[2017-04-26] MEDS: ZOFRAN IV PRN ×2 (13:36→22:14)
[2017-04-26] MEDS: CEPHULAC PO SCH ×2 (13:37→20:16)
[2017-04-26] MEDS ORDERED: SODIUM PHOSPHATE 30 MMOL in NACL 0.9% 500 ML 500 ML IV ONE (14:00)
[2017-04-26] MEDS: POTASSIUM CHLORIDE PO SCH ×2 (15:29→21:59)
[2017-04-26] MEDS ORDERED: MAGNESIUM SULFATE 3 GM in NACL 0.9% 100 ML IV ONE (16:00)
[2017-04-26] MEDS: LASIX PO SCH (20:16)
[2017-04-26] MEDS: PEPCID IV SCH (20:22)
[2017-04-26] MEDS: PEPCID PO SCH (22:00)
[2017-04-26] MEDS ORDERED: ATIVAN IV ONE (22:12)
[2017-04-27] MEDS: CEPHULAC PO SCH ×4 (00:14→17:23)
[2017-04-27 07:08] LABS: Anion Gap 18 mmol/L; BUN/Creatinine Ratio 13.33; Blood Urea Nitrogen 12 mg/dL (7-17); Calcium 7.7 mg/dL (8.4-10.2); Carbon Dioxide 24 mmol/L (22-30); Chloride 103.6 mmol/L (98-107); Glucose 90 mg/dL (65-100); Potassium 3.3 mmol/L (3.6-5.0); Sodium 142 mmol/L (137-145)
[2017-04-27 07:12] LABS: Phosphorous 4.1 mg/dL (2.5-4.5)
[2017-04-27] MEDS: POTASSIUM CHLORIDE FEEDTUBE SCH ×3 (08:34→22:15)
--- NOTE | 2017-04-27 09:33 | Progress Note ---
Assessment and Plan Assessment and plan: Acute toxic metabolic encephalopathy/hepatic encephalopathy with lethargy, confusion Ammonia level down to 32 today. Will decrease to 20mg po q 8h Less confused Infection ruled out CT head with involutional changes Alcoholic cirrhosis [facility] protocol Continue banana bag Supportive care Anemia Secondary to alcoholism/cirrhosis Monitor H&H Thrombocytopenia Secondary to cirrhosis likely Coagulopathy Due to cirrhosis Monitor INR Malnutrition Severe, albumin 2.8 Likely due to alcoholism/cirrhosis Acute renal failure Likely secondary to vasomotor nephropathy/rhabdomyolysis Creatinine trending down with IV fluids, 0.9 today. Metabolic acidosis/lactic acidosis Secondary to renal failure/no symptoms/signs of infection Hypernatremia Now resolved. sodium 137 today Hypokalemia. Replace orally Hypomagnesemia Resolved after Replacement Acute rhabdomyolysis Creatinie kinase 1492 today. Will discontinue iv fluids Elevated troponin Mild elevation, nonspecific in the setting of renal failure,rhabdomyolysis DVT prophylaxis with SCDs only No pharmacological agent given because of anemia/thrombocytopenia/cirrhosis. Peptic ulcer disease prophylaxis with Protonix. History Interval history: Altered mental status, Still confused but improving, less agitated Hospitalist Physical - Physical exam Narrative exam: Gen Appearance: Not in acute distress, sitting up in bed HEENT: normocephalic, atraumatic Neck: supple, no JVD Lungs: Clear to auscultation, bilaterally, no rales, no wheeze Heart: S1 and S2 regular, no murmurs, rubs or gallop Abdomen: Soft , non tender, non distended, normal bowel sounds Extremity: No edema, no clubbing or cyanosis Neuro : Confused, moves all extremities - Constitutional Vitals: Temp Pulse Resp BP Pulse Ox 98.9 F 96 H 20 115/67 100 04/27/17 07:48 04/27/17 07:48 04/27/17 07:48 04/27/17 07:48 04/27/17 07:48 General appearance: Present: mild distress, disheveled, other (in restraints) Results - Labs CBC & Chem 7: 04/24/17 15:31 04/27/17 06:05 Labs: Laboratory Last Values WBC 5.3 K/mm3 (4.5-11.0) 04/24/17 15:31 RBC 2.91 M/mm3 (3.65-5.03) L 04/24/17 15:31 Hgb 8.5 gm/dl (10.1-14.3) L 04/24/17 15:31 Hct 26.2 % (30.3-42.9) L 04/24/17 15:31 MCV 90 fl (79-97) 04/24/17 15:31 MCH 29 pg (28-32) 04/24/17 15:31 MCHC 33 % (30-34) 04/24/17 15:31 RDW 14.9 % (13.2-15.2) 04/24/17 15:31 Plt Count 93 K/mm3 (140-440) L 04/24/17 15:31 Lymph % (Auto) 16.8 % (13.4-35.0) 04/23/17 05:17 [place] % (Auto) 8.6 % (0.0-7.3) H 04/23/17 05:17 Eos % (Auto) 2.1 % (0.0-4.3) 04/23/17 05:17 Baso % (Auto) 0.6 % (0.0-1.8) 04/23/17 05:17 Lymph # 1.3 K/mm3 (1.2-5.4) 04/23/17 05:17 [place] # 0.6 K/mm3 (0.0-0.8) 04/23/17 05:17 Eos # 0.2 K/mm3 (0.0-0.4) 04/23/17 05:17 Baso # 0.0 K/mm3 (0.0-0.1) 04/23/17 05:17 Seg Neutrophils % 71.9 % (40.0-70.0) H 04/23/17 05:17 Seg Neutrophils # 5.4 K/mm3 (1.8-7.7) 04/23/17 05:17 PT 19.7 Sec. (12.2-14.9) H 04/21/17 04:41 INR 1.58 (0.87-1.13) H 04/21/17 04:41 Sodium 142 mmol/L (137-145) 04/27/17 06:05 Potassium 3.3 mmol/L (3.6-5.0) L 04/27/17 06:05 Chloride 103.6 mmol/L (98-107) 04/27/17 06:05 Carbon Dioxide 24 mmol/L (22-30) 04/27/17 06:05 Anion Gap 18 mmol/L 04/27/17 06:05 BUN 12 mg/dL (7-17) 04/27/17 06:05 Creatinine 0.9 mg/dL (0.7-1.2) 04/27/17 06:05 Estimated GFR > 60 ml/min 04/27/17 06:05 BUN/Creatinine Ratio 13.33 % 04/27/17 06:05 Glucose 90 mg/dL (65-100) 04/27/17 06:05 POC Glucose 127 (70-105) H 04/25/17 21:54 Lactic Acid 3.10 mmol/L (0.7-2.0) H* 04/20/17 22:40 Calcium 7.7 mg/dL (8.4-10.2) L 04/27/17 06:05 Phosphorus 4.10 mg/dL (2.5-4.5) D 04/27/17 06:05 Magnesium 2.00 mg/dL (1.7-2.3) 04/27/17 06:05 Total Bilirubin 1.60 mg/dL (0.1-1.2) H 04/24/17 15:31 AST 212 units/L (5-40) H 04/24/17 15:31 ALT 93 units/L (7-56) H 04/24/17 15:31 Alkaline Phosphatase 81 units/L (35-129) 04/24/17 15:31 Ammonia 32.0 umol/L (25-60) 04/27/17 07:25 Total Creatine Kinase 1492 units/L (30-135) H 04/27/17 06:05 CK-MB (CK-2) 18.0 ng/mL (0.0-4.0) H 04/19/17 15:59 CK-MB (CK-2) Rel Index 0.9 (0-4) 04/19/17 15:59 Troponin T 0.043 ng/mL (0.00-0.029) H 04/19/17 15:59 Total Protein 5.3 g/dL (6.3-8.2) L 04/24/17 15:31 Albumin 2.1 g/dL (3.9-5) L 04/24/17 15:31 Albumin/Globulin Ratio 0.7 % 04/24/17 15:31 Triglycerides 98 mg/dL (2-149) 04/18/17 21:16 Cholesterol 82 mg/dL (50-199) 04/18/17 21:16 LDL Cholesterol Direct 26 mg/dL (50-130) L 04/18/17 21:16 HDL Cholesterol 37 mg/dL (40-59) L 04/18/17 21:16 Cholesterol/HDL Ratio 2.21 % 04/18/17 21:16 Lipase 123 units/L (13-60) H 04/23/17 05:17 TSH 2.030 mlU/mL (0.270-4.200) 04/18/17 21:16 Urine Color Yellow (Yellow) 04/18/17 22:39 Urine Turbidity Clear (Clear) 04/18/17 22:39 Urine pH 7.0 (5.0-7.0) 04/18/17 22:39 Ur Specific [place] 1.009 (1.003-1.030) 04/18/17 22:39 Urine Protein <15 mg/dl mg/dL (Negative) 04/18/17 22:39 Urine Glucose (UA) Neg mg/dL (Negative) 04/18/17 22:39 Urine Ketones Neg mg/dL (Negative) 04/18/17 22:39 Urine Blood Sm (Negative) 04/18/17 22:39 Urine Nitrite Neg (Negative) 04/18/17 22:39 Urine Bilirubin Neg (Negative) 04/18/17 22:39 Urine Urobilinogen < 2.0 mg/dL (<2.0) 04/18/17 22:39 Ur Leukocyte Esterase Neg (Negative) 04/18/17 22:39 Urine WBC (Auto) < 1.0 /HPF (0.0-6.0) 04/18/17 22:39 Urine RBC (Auto) 2.0 /HPF (0.0-6.0) 04/18/17 22:39 U Epithel Cells (Auto) < 1.0 /HPF (0-13.0) 04/18/17 22:39 Salicylates < 0.3 mg/dL (2.8-20.0) L 04/18/17 21:16 Urine Opiates Screen Presumptive negative 04/18/17 22:39 Urine Methadone Screen Presumptive negative 04/18/17 22:39 Acetaminophen < 15.0 ug/mL (10.0-30.0) 04/18/17 21:16 Ur Barbiturates Screen Presumptive negative 04/18/17 22:39 Ur Phencyclidine Scrn Presumptive negative 04/18/17 22:39 Ur Amphetamines Screen Presumptive negative 04/18/17 22:39 U Benzodiazepines Scrn Presumptive negative 04/18/17 22:39 Urine Cocaine Screen Presumptive negative 04/18/17 22:39 U Marijuana (THC) Screen Presumptive negative 04/18/17 22:39 Drugs of Abuse Note Disclamer 04/18/17 22:39 Plasma/Serum Alcohol < 0.01 gm% (0-0.07) 04/18/17 21:16
[2017-04-27] MEDS: LASIX PO SCH (10:42)
[2017-04-27] MEDS: PEPCID PO SCH ×2 (10:42→22:14)
[2017-04-27] MEDS: HALDOL IM PRN (15:48)
[2017-04-27] MEDS: ZOFRAN IV PRN (22:14)
[2017-04-28] MEDS: MORPHINE IV PRN ×3 (00:24→15:07)
[2017-04-28] MEDS: CEPHULAC PO SCH ×3 (02:44→18:33)
--- NOTE | 2017-04-28 09:15 | Progress Note ---
Assessment and Plan Assessment and plan: Acute toxic metabolic encephalopathy/hepatic encephalopathy with lethargy, confusion Ammonia level was 32 yesterday. Continue Lactulose at 20mg po q 8h Less confused Infection ruled out CT head with involutional changes Alcoholic cirrhosis [facility] protocol Continue banana bag Supportive care Anemia Secondary to alcoholism/cirrhosis Monitor H&H Thrombocytopenia Secondary to cirrhosis likely Coagulopathy Due to cirrhosis Monitor INR Malnutrition Severe, albumin 2.8 Likely due to alcoholism/cirrhosis Acute renal failure Likely secondary to vasomotor nephropathy/rhabdomyolysis Creatinine trending down with IV fluids, 0.9 today. Metabolic acidosis/lactic acidosis Secondary to renal failure/no symptoms/signs of infection Hypernatremia Now resolved. sodium 142 yesterday. labs pending today Hypokalemia. Replace orally Hypomagnesemia Resolved after Replacement Acute rhabdomyolysis Creatinie kinase 1492 yesterday, labs pending today. Will discontinue iv fluids Elevated troponin Mild elevation, nonspecific in the setting of renal failure,rhabdomyolysis DVT prophylaxis with SCDs only No pharmacological agent given because of anemia/thrombocytopenia/cirrhosis. Peptic ulcer disease prophylaxis with Protonix. Overall she feels better. physical therapy consulted. hopefully d/c in 1-2 days. History Interval history: Altered mental status, Less confused, Less agitated Hospitalist Physical - Physical exam Narrative exam: Gen Appearance: Not in acute distress, sitting up in bed HEENT: normocephalic, atraumatic Neck: supple, no JVD Lungs: Clear to auscultation, bilaterally, no rales, no wheeze Heart: S1 and S2 regular, no murmurs, rubs or gallop Abdomen: Soft , non tender, non distended, normal bowel sounds Extremity: No edema, no clubbing or cyanosis Neuro : Awake,alert, less confused, moves all extremities - Constitutional Vitals: Temp Pulse Resp BP Pulse Ox 98.6 F 106 H 20 121/62 97 04/28/17 08:06 04/28/17 08:06 04/28/17 08:33 04/28/17 08:06 04/28/17 08:06 General appearance: Present: mild distress, disheveled, other (in restraints) Results - Labs CBC & Chem 7: 04/24/17 15:31 04/27/17 06:05 Labs: Laboratory Last Values WBC 5.3 K/mm3 (4.5-11.0) 04/24/17 15:31 RBC 2.91 M/mm3 (3.65-5.03) L 04/24/17 15:31 Hgb 8.5 gm/dl (10.1-14.3) L 04/24/17 15:31 Hct 26.2 % (30.3-42.9) L 04/24/17 15:31 MCV 90 fl (79-97) 04/24/17 15:31 MCH 29 pg (28-32) 04/24/17 15:31 MCHC 33 % (30-34) 04/24/17 15:31 RDW 14.9 % (13.2-15.2) 04/24/17 15:31 Plt Count 93 K/mm3 (140-440) L 04/24/17 15:31 Lymph % (Auto) 16.8 % (13.4-35.0) 04/23/17 05:17 [place] % (Auto) 8.6 % (0.0-7.3) H 04/23/17 05:17 Eos % (Auto) 2.1 % (0.0-4.3) 04/23/17 05:17 Baso % (Auto) 0.6 % (0.0-1.8) 04/23/17 05:17 Lymph # 1.3 K/mm3 (1.2-5.4) 04/23/17 05:17 [place] # 0.6 K/mm3 (0.0-0.8) 04/23/17 05:17 Eos # 0.2 K/mm3 (0.0-0.4) 04/23/17 05:17 Baso # 0.0 K/mm3 (0.0-0.1) 04/23/17 05:17 Seg Neutrophils % 71.9 % (40.0-70.0) H 04/23/17 05:17 Seg Neutrophils # 5.4 K/mm3 (1.8-7.7) 04/23/17 05:17 PT 19.7 Sec. (12.2-14.9) H 04/21/17 04:41 INR 1.58 (0.87-1.13) H 04/21/17 04:41 Sodium 142 mmol/L (137-145) 04/27/17 06:05 Potassium 3.3 mmol/L (3.6-5.0) L 04/27/17 06:05 Chloride 103.6 mmol/L (98-107) 04/27/17 06:05 Carbon Dioxide 24 mmol/L (22-30) 04/27/17 06:05 Anion Gap 18 mmol/L 04/27/17 06:05 BUN 12 mg/dL (7-17) 04/27/17 06:05 Creatinine 0.9 mg/dL (0.7-1.2) 04/27/17 06:05 Estimated GFR > 60 ml/min 04/27/17 06:05 BUN/Creatinine Ratio 13.33 % 04/27/17 06:05 Glucose 90 mg/dL (65-100) 04/27/17 06:05 POC Glucose 81 (70-105) 04/28/17 06:47 Lactic Acid 3.10 mmol/L (0.7-2.0) H* 04/20/17 22:40 Calcium 7.7 mg/dL (8.4-10.2) L 04/27/17 06:05 Phosphorus 4.10 mg/dL (2.5-4.5) D 04/27/17 06:05 Magnesium 2.00 mg/dL (1.7-2.3) 04/27/17 06:05 Total Bilirubin 1.60 mg/dL (0.1-1.2) H 04/24/17 15:31 AST 212 units/L (5-40) H 04/24/17 15:31 ALT 93 units/L (7-56) H 04/24/17 15:31 Alkaline Phosphatase 81 units/L (35-129) 04/24/17 15:31 Ammonia 32.0 umol/L (25-60) 04/27/17 07:25 Total Creatine Kinase 1492 units/L (30-135) H 04/27/17 06:05 CK-MB (CK-2) 18.0 ng/mL (0.0-4.0) H 04/19/17 15:59 CK-MB (CK-2) Rel Index 0.9 (0-4) 04/19/17 15:59 Troponin T 0.043 ng/mL (0.00-0.029) H 04/19/17 15:59 Total Protein 5.3 g/dL (6.3-8.2) L 04/24/17 15:31 Albumin 2.1 g/dL (3.9-5) L 04/24/17 15:31 Albumin/Globulin Ratio 0.7 % 04/24/17 15:31 Triglycerides 98 mg/dL (2-149) 04/18/17 21:16 Cholesterol 82 mg/dL (50-199) 04/18/17 21:16 LDL Cholesterol Direct 26 mg/dL (50-130) L 04/18/17 21:16 HDL Cholesterol 37 mg/dL (40-59) L 04/18/17 21:16 Cholesterol/HDL Ratio 2.21 % 04/18/17 21:16 Lipase 123 units/L (13-60) H 04/23/17 05:17 TSH 2.030 mlU/mL (0.270-4.200) 04/18/17 21:16 Urine Color Yellow (Yellow) 04/18/17 22:39 Urine Turbidity Clear (Clear) 04/18/17 22:39 Urine pH 7.0 (5.0-7.0) 04/18/17 22:39 Ur Specific [place] 1.009 (1.003-1.030) 04/18/17 22:39 Urine Protein <15 mg/dl mg/dL (Negative) 04/18/17 22:39 Urine Glucose (UA) Neg mg/dL (Negative) 04/18/17 22:39 Urine Ketones Neg mg/dL (Negative) 04/18/17 22:39 Urine Blood Sm (Negative) 04/18/17 22:39 Urine Nitrite Neg (Negative) 04/18/17 22:39 Urine Bilirubin Neg (Negative) 04/18/17 22:39 Urine Urobilinogen < 2.0 mg/dL (<2.0) 04/18/17 22:39 Ur Leukocyte Esterase Neg (Negative) 04/18/17 22:39 Urine WBC (Auto) < 1.0 /HPF (0.0-6.0) 04/18/17 22:39 Urine RBC (Auto) 2.0 /HPF (0.0-6.0) 04/18/17 22:39 U Epithel Cells (Auto) < 1.0 /HPF (0-13.0) 04/18/17 22:39 Salicylates < 0.3 mg/dL (2.8-20.0) L 04/18/17 21:16 Urine Opiates Screen Presumptive negative 04/18/17 22:39 Urine Methadone Screen Presumptive negative 04/18/17 22:39 Acetaminophen < 15.0 ug/mL (10.0-30.0) 04/18/17 21:16 Ur Barbiturates Screen Presumptive negative 04/18/17 22:39 Ur Phencyclidine Scrn Presumptive negative 04/18/17 22:39 Ur Amphetamines Screen Presumptive negative 04/18/17 22:39 U Benzodiazepines Scrn Presumptive negative 04/18/17 22:39 Urine Cocaine Screen Presumptive negative 04/18/17 22:39 U Marijuana (THC) Screen Presumptive negative 04/18/17 22:39 Drugs of Abuse Note Disclamer 04/18/17 22:39 Plasma/Serum Alcohol < 0.01 gm% (0-0.07) 04/18/17 21:16
[2017-04-28] MEDS: PEPCID PO SCH ×2 (10:00→21:44)
[2017-04-28] MEDS: LASIX PO SCH (10:00)
[2017-04-28 10:12] LABS: Anion Gap 16 mmol/L; BUN/Creatinine Ratio 8.88; Blood Urea Nitrogen 8 mg/dL (7-17); Calcium 7.6 mg/dL (8.4-10.2); Carbon Dioxide 23 mmol/L (22-30); Chloride 105.8 mmol/L (98-107); Glucose 124 mg/dL (65-100); Potassium 3.6 mmol/L (3.6-5.0); Sodium 141 mmol/L (137-145)
[2017-04-28] MEDS: HALDOL IM PRN (11:00)
[2017-04-29] MEDS: CEPHULAC PO SCH ×3 (02:00→18:01)
[2017-04-29 07:43] LABS: Anion Gap 14 mmol/L; Blood Urea Nitrogen 6 mg/dL (7-17); Calcium 7.7 mg/dL (8.4-10.2); Carbon Dioxide 25 mmol/L (22-30); Chloride 101.6 mmol/L (98-107); Glucose 86 mg/dL (65-100); Potassium 3.8 mmol/L (3.6-5.0); Sodium 137 mmol/L (137-145)
--- NOTE | 2017-04-29 08:43 | Progress Note ---
Assessment and Plan Assessment and plan: Acute toxic metabolic encephalopathy/hepatic encephalopathy with lethargy, confusion Ammonia level 55 today, normal. Continue same dose of Lactulose at 20mg po q 8h Less confused Infection ruled out Alcoholic cirrhosis [facility] protocol Supportive care Anemia Secondary to alcoholism/cirrhosis Monitor H&H Thrombocytopenia Secondary to cirrhosis likely Coagulopathy Due to cirrhosis Monitor INR Malnutrition Severe, albumin 2.8 Likely due to alcoholism/cirrhosis Acute renal failure Likely secondary to vasomotor nephropathy/rhabdomyolysis Creatinine trending down with IV fluids, 0.8 today. Metabolic acidosis/lactic acidosis Secondary to renal failure/no symptoms/signs of infection Hypernatremia Now resolved. sodium 137 today Hypokalemia. Now resolved after replacement Hypomagnesemia Resolved after Replacement Acute rhabdomyolysis Creatinie kinase 1153 today. Resume iv fluids Elevated troponin Mild elevation, nonspecific in the setting of renal failure,rhabdomyolysis. No furher workup indicated. DVT prophylaxis with SCDs only No pharmacological agent given because of anemia/thrombocytopenia/cirrhosis. Peptic ulcer disease prophylaxis with Protonix. Overall she feels better. Physical therapy evaluatuated her today, recommend cont PT while in hosp. To return to personal f[facility] when stable,hopefully in 1-2 days. History Interval history: Altered mental status, Less confused, Less agitated Gen weakness Hospitalist Physical - Physical exam Narrative exam: Gen Appearance: Not in acute distress, sitting up in bed HEENT: normocephalic, atraumatic Neck: supple, no JVD Lungs: Clear to auscultation, bilaterally, no rales, no wheeze Heart: S1 and S2 regular, no murmurs, rubs or gallop Abdomen: Soft , non tender, non distended, normal bowel sounds Extremity: No edema, no clubbing or cyanosis Neuro : Awake,alert, sitting up in bed,less confused, moves all extremities - Constitutional Vitals: Temp Pulse Resp BP Pulse Ox 98.4 F 84 18 108/47 100 04/29/17 07:28 04/29/17 07:28 04/29/17 07:28 04/29/17 07:24 04/29/17 07:28 General appearance: Present: mild distress, disheveled, other (in restraints) Results - Labs CBC & Chem 7: 04/24/17 15:31 04/29/17 06:56 Labs: Laboratory Last Values WBC 5.3 K/mm3 (4.5-11.0) 04/24/17 15:31 RBC 2.91 M/mm3 (3.65-5.03) L 04/24/17 15:31 Hgb 8.5 gm/dl (10.1-14.3) L 04/24/17 15:31 Hct 26.2 % (30.3-42.9) L 04/24/17 15:31 MCV 90 fl (79-97) 04/24/17 15:31 MCH 29 pg (28-32) 04/24/17 15:31 MCHC 33 % (30-34) 04/24/17 15:31 RDW 14.9 % (13.2-15.2) 04/24/17 15:31 Plt Count 93 K/mm3 (140-440) L 04/24/17 15:31 Lymph % (Auto) 16.8 % (13.4-35.0) 04/23/17 05:17 [place] % (Auto) 8.6 % (0.0-7.3) H 04/23/17 05:17 Eos % (Auto) 2.1 % (0.0-4.3) 04/23/17 05:17 Baso % (Auto) 0.6 % (0.0-1.8) 04/23/17 05:17 Lymph # 1.3 K/mm3 (1.2-5.4) 04/23/17 05:17 [place] # 0.6 K/mm3 (0.0-0.8) 04/23/17 05:17 Eos # 0.2 K/mm3 (0.0-0.4) 04/23/17 05:17 Baso # 0.0 K/mm3 (0.0-0.1) 04/23/17 05:17 Seg Neutrophils % 71.9 % (40.0-70.0) H 04/23/17 05:17 Seg Neutrophils # 5.4 K/mm3 (1.8-7.7) 04/23/17 05:17 PT 19.7 Sec. (12.2-14.9) H 04/21/17 04:41 INR 1.58 (0.87-1.13) H 04/21/17 04:41 Sodium 137 mmol/L (137-145) 04/29/17 06:56 Potassium 3.8 mmol/L (3.6-5.0) 04/29/17 06:56 Chloride 101.6 mmol/L (98-107) 04/29/17 06:56 Carbon Dioxide 25 mmol/L (22-30) 04/29/17 06:56 Anion Gap 14 mmol/L 04/29/17 06:56 BUN 6 mg/dL (7-17) L 04/29/17 06:56 Creatinine 0.8 mg/dL (0.7-1.2) 04/29/17 06:56 Estimated GFR > 60 ml/min 04/29/17 06:56 BUN/Creatinine Ratio 7.50 % 04/29/17 06:56 Glucose 86 mg/dL (65-100) 04/29/17 06:56 POC Glucose 81 (70-105) 04/28/17 06:47 Lactic Acid 3.10 mmol/L (0.7-2.0) H* 04/20/17 22:40 Calcium 7.7 mg/dL (8.4-10.2) L 04/29/17 06:56 Phosphorus 4.10 mg/dL (2.5-4.5) D 04/27/17 06:05 Magnesium 2.00 mg/dL (1.7-2.3) 04/27/17 06:05 Total Bilirubin 1.60 mg/dL (0.1-1.2) H 04/24/17 15:31 AST 212 units/L (5-40) H 04/24/17 15:31 ALT 93 units/L (7-56) H 04/24/17 15:31 Alkaline Phosphatase 81 units/L (35-129) 04/24/17 15:31 Ammonia 55.0 umol/L (25-60) 04/28/17 09:11 Total Creatine Kinase 1492 units/L (30-135) H 04/27/17 06:05 CK-MB (CK-2) 18.0 ng/mL (0.0-4.0) H 04/19/17 15:59 CK-MB (CK-2) Rel Index 0.9 (0-4) 04/19/17 15:59 Troponin T 0.043 ng/mL (0.00-0.029) H 04/19/17 15:59 Total Protein 5.3 g/dL (6.3-8.2) L 04/24/17 15:31 Albumin 2.1 g/dL (3.9-5) L 04/24/17 15:31 Albumin/Globulin Ratio 0.7 % 04/24/17 15:31 Triglycerides 98 mg/dL (2-149) 04/18/17 21:16 Cholesterol 82 mg/dL (50-199) 04/18/17 21:16 LDL Cholesterol Direct 26 mg/dL (50-130) L 04/18/17 21:16 HDL Cholesterol 37 mg/dL (40-59) L 04/18/17 21:16 Cholesterol/HDL Ratio 2.21 % 04/18/17 21:16 Lipase 123 units/L (13-60) H 04/23/17 05:17 TSH 2.030 mlU/mL (0.270-4.200) 04/18/17 21:16 Urine Color Yellow (Yellow) 04/18/17 22:39 Urine Turbidity Clear (Clear) 04/18/17 22:39 Urine pH 7.0 (5.0-7.0) 04/18/17 22:39 Ur Specific [place] 1.009 (1.003-1.030) 04/18/17 22:39 Urine Protein <15 mg/dl mg/dL (Negative) 04/18/17 22:39 Urine Glucose (UA) Neg mg/dL (Negative) 04/18/17 22:39 Urine Ketones Neg mg/dL (Negative) 04/18/17 22:39 Urine Blood Sm (Negative) 04/18/17 22:39 Urine Nitrite Neg (Negative) 04/18/17 22:39 Urine Bilirubin Neg (Negative) 04/18/17 22:39 Urine Urobilinogen < 2.0 mg/dL (<2.0) 04/18/17 22:39 Ur Leukocyte Esterase Neg (Negative) 04/18/17 22:39 Urine WBC (Auto) < 1.0 /HPF (0.0-6.0) 04/18/17 22:39 Urine RBC (Auto) 2.0 /HPF (0.0-6.0) 04/18/17 22:39 U Epithel Cells (Auto) < 1.0 /HPF (0-13.0) 04/18/17 22:39 Salicylates < 0.3 mg/dL (2.8-20.0) L 04/18/17 21:16 Urine Opiates Screen Presumptive negative 04/18/17 22:39 Urine Methadone Screen Presumptive negative 04/18/17 22:39 Acetaminophen < 15.0 ug/mL (10.0-30.0) 04/18/17 21:16 Ur Barbiturates Screen Presumptive negative 04/18/17 22:39 Ur Phencyclidine Scrn Presumptive negative 04/18/17 22:39 Ur Amphetamines Screen Presumptive negative 04/18/17 22:39 U Benzodiazepines Scrn Presumptive negative 04/18/17 22:39 Urine Cocaine Screen Presumptive negative 04/18/17 22:39 U Marijuana (THC) Screen Presumptive negative 04/18/17 22:39 Drugs of Abuse Note Disclamer 04/18/17 22:39 Plasma/Serum Alcohol < 0.01 gm% (0-0.07) 04/18/17 21:16
[2017-04-29] MEDS: PEPCID PO SCH ×2 (10:17→22:12)
[2017-04-29] MEDS: NACL 0.9% 1000 ML 1,000 ML IV SCH (11:52)
[2017-04-29] MEDS: ZOFRAN IV PRN (13:17)
[2017-04-29 13:58] LABS: Hematocrit 23.8 % (30.3-42.9); Hemoglobin 7.6 gm/dl (10.1-14.3); Mean Corpuscular HGB Conc 32 % (30-34); Mean Corpuscular Hemoglobin 29 pg (28-32); Mean Corpuscular Volume 91 fl (79-97); Platelet Count 128 K/mm3 (140-440); Red Blood Count 2.62 M/mm3 (3.65-5.03); Red Cell Distribution Width 16.7 % (13.2-15.2); White Blood Count 6.5 K/mm3 (4.5-11.0)
[2017-04-30] MEDS: ZOFRAN IV PRN ×3 (03:12→21:53)
[2017-04-30] MEDS: CEPHULAC PO SCH ×3 (03:12→21:56)
[2017-04-30] MEDS: NACL 0.9% 1000 ML 1,000 ML IV SCH (06:48)
[2017-04-30 06:58] LABS: Anion Gap 14 mmol/L; Blood Urea Nitrogen 4 mg/dL (7-17); Calcium 7.7 mg/dL (8.4-10.2); Carbon Dioxide 24 mmol/L (22-30); Chloride 104.1 mmol/L (98-107); Creatine Kinase 647 units/L (30-135); Glucose 97 mg/dL (65-100); Potassium 3.3 mmol/L (3.6-5.0); Sodium 139 mmol/L (137-145)
[2017-04-30] MEDS: PEPCID PO SCH ×2 (10:02→21:53)
--- NOTE | 2017-04-30 11:15 | Progress Note ---
Assessment and Plan Assessment and plan: 61-year-old woman history of hypertension, cirrhosis, depression and was sent to the emergency room from her personal [facility] for evaluation for altered mental status. Acute toxic metabolic encephalopathy/hepatic encephalopathy with lethargy, confusion Ammonia level 55 today, normal. Continue same dose of Lactulose at 20mg po q 8h Less confused Infection ruled out Hypokalemia replete IV Nausea and vomiting -Antiemetics as needed, reduced dose of lactulose Alcoholic cirrhosis [facility] protocol Supportive care Anemia Secondary to alcoholism/cirrhosis Monitor H&H Thrombocytopenia Secondary to cirrhosis likely Coagulopathy Due to cirrhosis Monitor INR Malnutrition Severe, albumin 2.8 Likely due to alcoholism/cirrhosis Acute renal failure Likely secondary to vasomotor nephropathy/rhabdomyolysis Creatinine trending down with IV fluids, 0.8 today. Metabolic acidosis/lactic acidosis Secondary to renal failure/no symptoms/signs of infection Hypernatremia Now resolved. sodium 137 today Hypokalemia. Now resolved after replacement Hypomagnesemia Resolved after Replacement Acute rhabdomyolysis continue IVF, improved Elevated troponin Mild elevation, nonspecific in the setting of renal failure,rhabdomyolysis. No furher workup indicated. DVT prophylaxis with SCDs only No pharmacological agent given because of anemia/thrombocytopenia/cirrhosis. Peptic ulcer disease prophylaxis with Protonix. Overall she feels better. Physical therapy evaluatuated her today, recommend cont PT while in hosp. To return to personal f[facility] when stable,hopefully in 1-2 days. History Interval history: She did have some nausea and vomiting as per her nurse. Patient states that she feels tired Hospitalist Physical - Physical exam Narrative exam: General.: Appears well, no distress, nontoxic HEENT: Moist mucous membranes, extraocular muscles intact, no lymphadenopathy Neck: supple Cardiac: S1-S2 heard Lungs: clear to auscultation bilaterally Abdomen: soft , nontender, nondistended, bowel sounds positive Extremities: no edema clubbing or cyanosis Skin: no rash or lesions Neurologic: no gross focal deficits Psych: appropriate behavior, appropriate mood, corporative, judgment intact - Constitutional Vitals: Temp Pulse Resp BP Pulse Ox 98.8 F 94 H 18 115/63 99 04/30/17 07:33 04/29/17 22:31 04/30/17 07:33 04/30/17 07:33 04/29/17 22:31 General appearance: Present: mild distress, disheveled, other (in restraints) Results - Labs CBC & Chem 7: 04/29/17 13:16 04/30/17 06:16 Labs: Laboratory Last Values WBC 6.5 K/mm3 (4.5-11.0) 04/29/17 13:16 RBC 2.62 M/mm3 (3.65-5.03) L 04/29/17 13:16 Hgb 7.6 gm/dl (10.1-14.3) L 04/29/17 13:16 Hct 23.8 % (30.3-42.9) L 04/29/17 13:16 MCV 91 fl (79-97) 04/29/17 13:16 MCH 29 pg (28-32) 04/29/17 13:16 MCHC 32 % (30-34) 04/29/17 13:16 RDW 16.7 % (13.2-15.2) H 04/29/17 13:16 Plt Count 128 K/mm3 (140-440) L 04/29/17 13:16 Lymph % (Auto) 16.8 % (13.4-35.0) 04/23/17 05:17 [place] % (Auto) 8.6 % (0.0-7.3) H 04/23/17 05:17 Eos % (Auto) 2.1 % (0.0-4.3) 04/23/17 05:17 Baso % (Auto) 0.6 % (0.0-1.8) 04/23/17 05:17 Lymph # 1.3 K/mm3 (1.2-5.4) 04/23/17 05:17 [place] # 0.6 K/mm3 (0.0-0.8) 04/23/17 05:17 Eos # 0.2 K/mm3 (0.0-0.4) 04/23/17 05:17 Baso # 0.0 K/mm3 (0.0-0.1) 04/23/17 05:17 Seg Neutrophils % 71.9 % (40.0-70.0) H 04/23/17 05:17 Seg Neutrophils # 5.4 K/mm3 (1.8-7.7) 04/23/17 05:17 PT 19.7 Sec. (12.2-14.9) H 04/21/17 04:41 INR 1.58 (0.87-1.13) H 04/21/17 04:41 Sodium 139 mmol/L (137-145) 04/30/17 06:16 Potassium 3.3 mmol/L (3.6-5.0) L 04/30/17 06:16 Chloride 104.1 mmol/L (98-107) 04/30/17 06:16 Carbon Dioxide 24 mmol/L (22-30) 04/30/17 06:16 Anion Gap 14 mmol/L 04/30/17 06:16 BUN 4 mg/dL (7-17) L 04/30/17 06:16 Creatinine 0.8 mg/dL (0.7-1.2) 04/30/17 06:16 Estimated GFR > 60 ml/min 04/30/17 06:16 BUN/Creatinine Ratio 5.00 % 04/30/17 06:16 Glucose 97 mg/dL (65-100) 04/30/17 06:16 POC Glucose 81 (70-105) 04/28/17 06:47 Lactic Acid 3.10 mmol/L (0.7-2.0) H* 04/20/17 22:40 Calcium 7.7 mg/dL (8.4-10.2) L 04/30/17 06:16 Phosphorus 4.10 mg/dL (2.5-4.5) D 04/27/17 06:05 Magnesium 2.00 mg/dL (1.7-2.3) 04/27/17 06:05 Total Bilirubin 1.60 mg/dL (0.1-1.2) H 04/24/17 15:31 AST 212 units/L (5-40) H 04/24/17 15:31 ALT 93 units/L (7-56) H 04/24/17 15:31 Alkaline Phosphatase 81 units/L (35-129) 04/24/17 15:31 Ammonia 51.0 umol/L (25-60) 04/30/17 06:16 Total Creatine Kinase 647 units/L (30-135) H 04/30/17 06:16 CK-MB (CK-2) 18.0 ng/mL (0.0-4.0) H 04/19/17 15:59 CK-MB (CK-2) Rel Index 0.9 (0-4) 04/19/17 15:59 Troponin T 0.043 ng/mL (0.00-0.029) H 04/19/17 15:59 Total Protein 5.3 g/dL (6.3-8.2) L 04/24/17 15:31 Albumin 2.1 g/dL (3.9-5) L 04/24/17 15:31 Albumin/Globulin Ratio 0.7 % 04/24/17 15:31 Triglycerides 98 mg/dL (2-149) 04/18/17 21:16 Cholesterol 82 mg/dL (50-199) 04/18/17 21:16 LDL Cholesterol Direct 26 mg/dL (50-130) L 04/18/17 21:16 HDL Cholesterol 37 mg/dL (40-59) L 04/18/17 21:16 Cholesterol/HDL Ratio 2.21 % 04/18/17 21:16 Lipase 123 units/L (13-60) H 04/23/17 05:17 TSH 2.030 mlU/mL (0.270-4.200) 04/18/17 21:16 Urine Color Yellow (Yellow) 04/18/17 22:39 Urine Turbidity Clear (Clear) 04/18/17 22:39 Urine pH 7.0 (5.0-7.0) 04/18/17 22:39 Ur Specific [place] 1.009 (1.003-1.030) 04/18/17 22:39 Urine Protein <15 mg/dl mg/dL (Negative) 04/18/17 22:39 Urine Glucose (UA) Neg mg/dL (Negative) 04/18/17 22:39 Urine Ketones Neg mg/dL (Negative) 04/18/17 22:39 Urine Blood Sm (Negative) 04/18/17 22:39 Urine Nitrite Neg (Negative) 04/18/17 22:39 Urine Bilirubin Neg (Negative) 04/18/17 22:39 Urine Urobilinogen < 2.0 mg/dL (<2.0) 04/18/17 22:39 Ur Leukocyte Esterase Neg (Negative) 04/18/17 22:39 Urine WBC (Auto) < 1.0 /HPF (0.0-6.0) 04/18/17 22:39 Urine RBC (Auto) 2.0 /HPF (0.0-6.0) 04/18/17 22:39 U Epithel Cells (Auto) < 1.0 /HPF (0-13.0) 04/18/17 22:39 Salicylates < 0.3 mg/dL (2.8-20.0) L 04/18/17 21:16 Urine Opiates Screen Presumptive negative 04/18/17 22:39 Urine Methadone Screen Presumptive negative 04/18/17 22:39 Acetaminophen < 15.0 ug/mL (10.0-30.0) 04/18/17 21:16 Ur Barbiturates Screen Presumptive negative 04/18/17 22:39 Ur Phencyclidine Scrn Presumptive negative 04/18/17 22:39 Ur Amphetamines Screen Presumptive negative 04/18/17 22:39 U Benzodiazepines Scrn Presumptive negative 04/18/17 22:39 Urine Cocaine Screen Presumptive negative 04/18/17 22:39 U Marijuana (THC) Screen Presumptive negative 04/18/17 22:39 Drugs of Abuse Note Disclamer 04/18/17 22:39 Plasma/Serum Alcohol < 0.01 gm% (0-0.07) 04/18/17 21:16
[2017-04-30] MEDS ORDERED: NS 0.45/KCL 20MEQ 20 MEQ/1,000 ML BAG IV SCH ×2 (12:00→13:00)
[2017-05-01] MEDS: CEPHULAC PO SCH ×2 (09:22→22:29)
[2017-05-01] MEDS: PEPCID PO SCH ×2 (09:23→22:29)
[2017-05-01] MEDS: ZOFRAN IV PRN (09:23)
--- NOTE | 2017-05-01 11:24 | Progress Note ---
Hospitalist Physical - Constitutional Vitals: Temp Pulse Resp BP Pulse Ox 99.5 F 96 H 18 126/69 99 05/01/17 08:14 05/01/17 08:14 05/01/17 08:14 05/01/17 08:14 05/01/17 08:14 General appearance: Present: mild distress, disheveled, other (in restraints) Results - Labs CBC & Chem 7: 04/29/17 13:16 04/30/17 06:16 Labs: Laboratory Last Values WBC 6.5 K/mm3 (4.5-11.0) 04/29/17 13:16 RBC 2.62 M/mm3 (3.65-5.03) L 04/29/17 13:16 Hgb 7.6 gm/dl (10.1-14.3) L 04/29/17 13:16 Hct 23.8 % (30.3-42.9) L 04/29/17 13:16 MCV 91 fl (79-97) 04/29/17 13:16 MCH 29 pg (28-32) 04/29/17 13:16 MCHC 32 % (30-34) 04/29/17 13:16 RDW 16.7 % (13.2-15.2) H 04/29/17 13:16 Plt Count 128 K/mm3 (140-440) L 04/29/17 13:16 Lymph % (Auto) 16.8 % (13.4-35.0) 04/23/17 05:17 [place] % (Auto) 8.6 % (0.0-7.3) H 04/23/17 05:17 Eos % (Auto) 2.1 % (0.0-4.3) 04/23/17 05:17 Baso % (Auto) 0.6 % (0.0-1.8) 04/23/17 05:17 Lymph # 1.3 K/mm3 (1.2-5.4) 04/23/17 05:17 [place] # 0.6 K/mm3 (0.0-0.8) 04/23/17 05:17 Eos # 0.2 K/mm3 (0.0-0.4) 04/23/17 05:17 Baso # 0.0 K/mm3 (0.0-0.1) 04/23/17 05:17 Seg Neutrophils % 71.9 % (40.0-70.0) H 04/23/17 05:17 Seg Neutrophils # 5.4 K/mm3 (1.8-7.7) 04/23/17 05:17 PT 19.7 Sec. (12.2-14.9) H 04/21/17 04:41 INR 1.58 (0.87-1.13) H 04/21/17 04:41 Sodium 139 mmol/L (137-145) 04/30/17 06:16 Potassium 3.3 mmol/L (3.6-5.0) L 04/30/17 06:16 Chloride 104.1 mmol/L (98-107) 04/30/17 06:16 Carbon Dioxide 24 mmol/L (22-30) 04/30/17 06:16 Anion Gap 14 mmol/L 04/30/17 06:16 BUN 4 mg/dL (7-17) L 04/30/17 06:16 Creatinine 0.8 mg/dL (0.7-1.2) 04/30/17 06:16 Estimated GFR > 60 ml/min 04/30/17 06:16 BUN/Creatinine Ratio 5.00 % 04/30/17 06:16 Glucose 97 mg/dL (65-100) 04/30/17 06:16 POC Glucose 81 (70-105) 04/28/17 06:47 Lactic Acid 3.10 mmol/L (0.7-2.0) H* 04/20/17 22:40 Calcium 7.7 mg/dL (8.4-10.2) L 04/30/17 06:16 Phosphorus 4.10 mg/dL (2.5-4.5) D 04/27/17 06:05 Magnesium 2.00 mg/dL (1.7-2.3) 04/27/17 06:05 Total Bilirubin 1.60 mg/dL (0.1-1.2) H 04/24/17 15:31 AST 212 units/L (5-40) H 04/24/17 15:31 ALT 93 units/L (7-56) H 04/24/17 15:31 Alkaline Phosphatase 81 units/L (35-129) 04/24/17 15:31 Ammonia 51.0 umol/L (25-60) 04/30/17 06:16 Total Creatine Kinase 647 units/L (30-135) H 04/30/17 06:16 CK-MB (CK-2) 18.0 ng/mL (0.0-4.0) H 04/19/17 15:59 CK-MB (CK-2) Rel Index 0.9 (0-4) 04/19/17 15:59 Troponin T 0.043 ng/mL (0.00-0.029) H 04/19/17 15:59 Total Protein 5.3 g/dL (6.3-8.2) L 04/24/17 15:31 Albumin 2.1 g/dL (3.9-5) L 04/24/17 15:31 Albumin/Globulin Ratio 0.7 % 04/24/17 15:31 Triglycerides 98 mg/dL (2-149) 04/18/17 21:16 Cholesterol 82 mg/dL (50-199) 04/18/17 21:16 LDL Cholesterol Direct 26 mg/dL (50-130) L 04/18/17 21:16 HDL Cholesterol 37 mg/dL (40-59) L 04/18/17 21:16 Cholesterol/HDL Ratio 2.21 % 04/18/17 21:16 Lipase 123 units/L (13-60) H 04/23/17 05:17 TSH 2.030 mlU/mL (0.270-4.200) 04/18/17 21:16 Urine Color Yellow (Yellow) 04/18/17 22:39 Urine Turbidity Clear (Clear) 04/18/17 22:39 Urine pH 7.0 (5.0-7.0) 04/18/17 22:39 Ur Specific [place] 1.009 (1.003-1.030) 04/18/17 22:39 Urine Protein <15 mg/dl mg/dL (Negative) 04/18/17 22:39 Urine Glucose (UA) Neg mg/dL (Negative) 04/18/17 22:39 Urine Ketones Neg mg/dL (Negative) 04/18/17 22:39 Urine Blood Sm (Negative) 04/18/17 22:39 Urine Nitrite Neg (Negative) 04/18/17 22:39 Urine Bilirubin Neg (Negative) 04/18/17 22:39 Urine Urobilinogen < 2.0 mg/dL (<2.0) 04/18/17 22:39 Ur Leukocyte Esterase Neg (Negative) 04/18/17 22:39 Urine WBC (Auto) < 1.0 /HPF (0.0-6.0) 04/18/17 22:39 Urine RBC (Auto) 2.0 /HPF (0.0-6.0) 04/18/17 22:39 U Epithel Cells (Auto) < 1.0 /HPF (0-13.0) 04/18/17 22:39 Salicylates < 0.3 mg/dL (2.8-20.0) L 04/18/17 21:16 Urine Opiates Screen Presumptive negative 04/18/17 22:39 Urine Methadone Screen Presumptive negative 04/18/17 22:39 Acetaminophen < 15.0 ug/mL (10.0-30.0) 04/18/17 21:16 Ur Barbiturates Screen Presumptive negative 04/18/17 22:39 Ur Phencyclidine Scrn Presumptive negative 04/18/17 22:39 Ur Amphetamines Screen Presumptive negative 04/18/17 22:39 U Benzodiazepines Scrn Presumptive negative 04/18/17 22:39 Urine Cocaine Screen Presumptive negative 04/18/17 22:39 U Marijuana (THC) Screen Presumptive negative 04/18/17 22:39 Drugs of Abuse Note Disclamer 04/18/17 22:39 Plasma/Serum Alcohol < 0.01 gm% (0-0.07) 04/18/17 21:16
--- NOTE | 2017-05-01 17:57 | Discharge Summary ---
Providers - Providers Date of Admission: 04/18/17 23:55 Attending physician: SRINIVASA GOSS MD 04/21/17 12:31 Consult to Dietitian/Nutrition [CONS] Routine Physician Instructions: Assess nutrtn needs, initiate, modify, manage TF Reason For Exam: Reason for Consult: Write/Manage Tube Feeding Reason for Consult: Write/Manage Tube Feeding 04/24/17 16:07 Speech Therapy Evaluation and Treat [CONS] Stat Reason For Exam: difficulty swallowing 04/28/17 08:51 Consult to Wound/ET Nurse [CONS] Routine Reason For Exam: wound eval 04/28/17 09:04 Physical Therapy Evaluation and Treat [CONS] Routine Comment: Reason For Exam: generalized weakness Primary care physician: TIMBER KILLER Hospitalization Condition: Serious Hospital course: 61-year-old woman history of hypertension, cirrhosis, depression and was sent to the emergency room from her [facility] for evaluation for altered mental status. She was found to have hepatic encephalopathy, for which she received lactulose and her mentation improved. The patient did have an infectious workup that was negative. She received supportive care, she was encouraged to increase oral intake of food. She also did have acute renal failure due to dehydration and rhabdomyolysis. She received IV fluids after which that improved. Electrolytes were repleted and her medications were optimized. She did have nausea and vomiting for which she received antiemetics and clinically improved Discharge diagnoses Hepatic encephalopathy Anemia of chronic disease Alcoholic cirrhosis Hypokalemia Thrombocytopenia due to hypersplenism Coagulopathy due to cirrhosis Severe malnutrition Acute renal failure due to vasomotor nephropathy and ATN Metabolic acidosis/lactic acidosis Hypomagnesemia Nontraumatic rhabdomyolysis Peptic ulcer disease Elevated troponin this was not due to [place], this was elevated in setting of rhabdomyolysis Intractable nausea and vomiting Disposition: DC/TX-70 ANOTHER TYPE HLTHCARE Time spent for discharge: 33 minutes Core Measure Documentation - Palliative Care Palliative Care/ Comfort Measures: Not Applicable - Core Measures Any of the following diagnoses?: none Exam - Constitutional Vitals: Temp Pulse Resp BP Pulse Ox 99.5 F 96 H 18 126/69 99 05/01/17 08:14 05/01/17 08:14 05/01/17 08:14 05/01/17 08:14 05/01/17 08:14 General appearance: Present: no acute distress, well-nourished - EENT Eyes: Present: PERRL ENT: hearing intact, clear oral mucosa - Neck Neck: Present: supple, normal ROM - Respiratory Respiratory effort: normal Respiratory: bilateral: CTA - Cardiovascular Heart Sounds: Present: S1 & S2. Absent: rub, click - Extremities Extremities: pulses symmetrical, No edema Peripheral Pulses: within normal limits - Abdominal General gastrointestinal: Present: soft, non-tender, non-distended, normal bowel sounds Female genitourinary: Present: normal - Integumentary Integumentary: Present: clear, warm, dry - Musculoskeletal Musculoskeletal: gait normal, strength equal bilaterally - Psychiatric Psychiatric: appropriate mood/affect, intact judgment & insight - Neurologic Neurologic: CNII-XII intact, moves all extremities Plan Follow up with: PRIMARY CARE,MD [Primary Care Provider] - 3-5 Days Prescriptions: Lactulose [Cephulac] 20 gm PO BID 30 Days Metoclopramide HCl [Reglan TAB] 5 mg PO TIDAC 7 Days Ondansetron [Zofran Odt] 4 mg PO Q6H PRN #30 tab.rapdis PRN Reason: Nausea Potassium Chloride 10 meq PO DAILY #30 capsule.er Sertraline HCl [Zoloft] 50 mg PO DAILY #30 tablet Spironolactone [Aldactone] 25 mg PO QDAY #30 tablet Other Discharge Orders: Basic Metabolic Panel Time Frame: 1 Week, Location: Determined By Patient
[2017-05-01 22:34] VITALS: BP 111/75
== END 2017-05-01 22:05 | disposition hospice, inpatient (51) | DRG 441 ==
LOC: ED 18:56 → 4A 23:55 → 3A 04-25 15:18
PROVIDERS: ADMIT Internal Medicine; ATTEND Internal Medicine
PROC: 3E0234Z Introduction of Serum, Toxoid and Vaccine into Muscle, Percutaneous Approach (ICD-10-PCS; principal; 2017-04-18)
DX: K72.90 Hepatic failure, unspecified without coma (principal); G92 Toxic encephalopathy; E43 Unspecified severe protein-calorie malnutrition; N17.0 Acute kidney failure with tubular necrosis; M62.82 Rhabdomyolysis; E87.2 Acidosis; E87.0 Hyperosmolality and hypernatremia; D68.9 Coagulation defect, unspecified; F32.9 Major depressive disorder, single episode, unspecified; I10 Essential (primary) hypertension; K70.30 Alcoholic cirrhosis of liver without ascites; D69.6 Thrombocytopenia, unspecified; E83.42 Hypomagnesemia; D73.1 Hypersplenism; K27.9 Peptic ulcer, site unspecified, unspecified as acute or chronic, without hemorrhage or perforation; E86.0 Dehydration; F10.20 Alcohol dependence, uncomplicated; D63.8 Anemia in other chronic diseases classified elsewhere; Z68.25 Body mass index [BMI] 25.0-25.9, adult; Z79.899 Other long term (current) drug therapy; Z23 Encounter for immunization
CPT/HCPCS: 36415; 70450; 71010; 74000; 80048; 80053; 80061; 80307; 80320; 81001; 82140; 82550; 82553; 82962; 83690; 83735; 84100; 84443; 84484; 85025; 85027; 85610; 87040; 87086; 90732; 93005; 93010; 96361; 96365; 96366; G0480; G8978-GP; G8979-GP; G8996-GN; G8997-GN; G8998-GN; J1630; J2060; J2270; J2405; J3411; J3475; J7030; J7040; J7070

== ENCOUNTER 2017-05-13 12:55 | Emergency (ER) | payer MEDICARE ==
[2017-05-13] MEDS ORDERED: HALDOL ONE (13:16)
[2017-05-13] MEDS ORDERED: HALDOL IM ONE (13:43)
--- NOTE | 2017-05-13 13:43 | Emergency Department Report ---
HPI - General Chief Complaint: Altered Mental Status Time Seen by Provider: 05/13/17 13:15 - HPI HPI: This is a 61-year-old Italian female who presents to the emergency department by EMS from her personal fpc with a complaint of a 4 day history of progressively worsening altered mental status. Patient has a history of alcohol dependence, liver cirrhosis, hyperammonemia, previous hepatic encephalopathy, hypertension. Patient usually is awake and alert enough to help with her activities of daily living but she arrives agitated and confused. The patient was recently started on hospice and is here with a member of the hospice group as well as the patient's DO NOT RESUSCITATE. She is a poor historian secondary to her current medical and mental status. ED Past Medical Hx - Past Medical History Hx Hypertension: Yes Hx Congestive Heart Failure: No Hx Diabetes: No Hx Psychiatric Treatment: Yes (depression) Hx Asthma: No Hx COPD: No Additional medical history: ETOH abuse; cirrhosis; elevated ammonia levels - Surgical History Additional Surgical History: LUBNA - Social History Smoking Status: Unknown if ever smoked - Medications Home Medications: Home Medications Medication Instructions Recorded Confirmed Last Taken Type Lactulose [Cephulac] 20 gm PO BID 30 Days 05/01/17 Unknown Rx Metoclopramide HCl [Reglan TAB] 5 mg PO TIDAC 7 Days 05/01/17 Unknown Rx Ondansetron [Zofran Odt] 4 mg PO Q6H PRN #30 tab.rapdis 05/01/17 Unknown Rx Potassium Chloride 10 meq PO DAILY #30 capsule.er 05/01/17 Unknown Rx Sertraline HCl [Zoloft] 50 mg PO DAILY #30 tablet 05/01/17 Unknown Rx Spironolactone [Aldactone] 25 mg PO QDAY #30 tablet 05/01/17 Unknown Rx ED Review of Systems ROS: Stated complaint: AMS X 4 DAYS Other details as noted in HPI Comment: Unobtainable due to pts medical conditions Physical Exam - Physical Exam Vital Signs: Vital Signs 05/13/17 13:01 Temperature 98.7 F Pulse Rate 120 H Blood Pressure 140/70 O2 Sat by Pulse 99 Oximetry Physical Exam: GENERAL: Patient is ill-appearing and agitated. HENT: Normocephalic. Atraumatic. Patient has moist mucous membranes. EYES: Extraocular motions are intact. Pupils equal reactive to light bilaterally. NECK: Supple. Trachea is midline. CHEST/LUNGS: Clear to auscultation. There is no respiratory distress noted. HEART/CARDIOVASCULAR: Regular. There is no tachycardia. There is no gallop rub or murmur. ABDOMEN: Abdomen is soft, nontender. Patient has normal bowel sounds. There is mild to moderate abdominal distention. SKIN: Skin is warm and dry. NEURO: The patient is awake but appears confused. She is verbal but mostly grunting. She does not follow any commands. MUSCULOSKELETAL: There is no tenderness or deformity. There is no evidence of acute injury. ED Course Vital Signs 05/13/17 13:01 Temperature 98.7 F Pulse Rate 120 H Blood Pressure 140/70 O2 Sat by Pulse 99 Oximetry ED Medical Decision Making - Lab Data Result diagrams: 05/13/17 13:32 05/13/17 13:32 - EKG Data -: EKG Interpreted by Id EKG shows normal: sinus rhythm, axis, intervals, QRS complexes (low-voltage QRS) , ST-T waves Rate: tachycardia (108 bpm) - EKG Data When compared to previous EKG there are: previous EKG unavailable Interpretation: other (sinus tachycardia at 108 beats per minutes, low-voltage QRS, no ST elevation [place]) - Radiology Data Radiology results: report reviewed CT HEAD WITHOUT CONTRAST INDICATION: Altered mental status. COMPARISON: 04/18/2017. FINDINGS: Noncontrast head CT demonstrates stable, age appropriate ventricles and sulci. Mild periventricular hypodense small vessel ischemic disease. No definite acute infarct, hemorrhage, mass effect or midline shift. No abnormal extra-axial fluid collections. Normal posterior fossa with preserved basilar cisterns. Normal eye globes. Mild leftward nasal septal deviation. Clear imaged paranasal sinuses and mastoid air cells. Atherosclerotic ICA calcifications. Few radiopaque dental material. CONCLUSION: No acute intracranial CT abnormality, as described. - Medical Decision Making This is a 61-year-old female presents to the emergency department from a personal fpc with her hospice nurse, but this is prior to any inpatient hospice arrangement. She is more altered than usual and this has been getting progressively worse over the past 4 days. She required some Haldol in order to do a proper evaluation and to obtain blood work and a CT scan. CT of the head did not show any bleed, shift, mass or any acute process. She does have a history of previous hepatic encephalopathy secondary to liver cirrhosis and this may be what is going on once again. She has elevated liver enzymes and has an ammonia level of 177. While the patient was being evaluated in the emergency department, her hospice nurse from [facility], Krista Roman , notified me that the patient has been accepted for inpatient hospice at [facility]. I was notified that the patient's DO NOT RESUSCITATE status and the fact that she has gone to inpatient hospice means that they do not require any significant treatment of the conditions or lateral abnormalities found. They do not require any further lactulose for her hyperammonemia. Dr. Marie is the medical accounting clerk or the physician for [facility] and can prescribe any necessary medications. - Differential Diagnosis hepatic encephalopathy, dementia, TIA, sepsis Critical Care Time: No Critical care attestation.: If time is entered above; I have spent that time in minutes in the direct care of this critically ill patient, excluding procedure time. ED Disposition Clinical Impression: Hepatic encephalopathy, Renal insufficiency, Hyperammonemia Altered mental status Qualifiers: Altered mental status type: unspecified Qualified Code(s): R41.82 - Altered mental status, unspecified Disposition: [id number]/[id number] ANOTHER TYPE HLTHCARE Is pt being admited?: No Condition: Poor Instructions: Altered Mental Status (ED), Impaired Kidney Function (ED) Additional Instructions: This patient is being moved to inpatient hospice. If something were to change and the patient was no longer hospice and DO NOT RESUSCITATE, then the patient needs immediate transport to the closest emergency department. Referrals: PRIMARY CARE, [Primary Care Provider] - 3-5 Days Time of Disposition: 15:33
[2017-05-13 13:50] LABS: Basophils % (Auto) 0.7 % (0.0-1.8); Eosinophils % (Auto) 1.3 % (0.0-4.3); Hemoglobin 9.1 gm/dl (10.1-14.3); Mean Corpuscular HGB Conc 33 % (30-34); Mean Corpuscular Hemoglobin 29 pg (28-32); Mean Corpuscular Volume 88 fl (79-97); Platelet Count 132 K/mm3 (140-440); Red Blood Count 3.17 M/mm3 (3.65-5.03); Red Cell Distribution Width 17.4 % (13.2-15.2)
[2017-05-13 14:01] LABS: INR 1.61 (0.87-1.13); Partial Thromboplastin Time 33.5 Sec. (24.2-36.6)
[2017-05-13 14:13] LABS: Albumin 2.5 g/dL (3.9-5); Albumin/Globulin Ratio 0.7 %; Bilirubin,Total 1.5 mg/dL (0.1-1.2); Calcium 8.7 mg/dL (8.4-10.2); Chloride 100.5 mmol/L (98-107); Potassium 4.5 mmol/L (3.6-5.0); Total Protein 6.1 g/dL (6.3-8.2)
--- NOTE | 2017-05-13 15:02 | Cat Scan Report ---
CT HEAD WITHOUT CONTRAST INDICATION: Altered mental status. COMPARISON: 04/18/2017. FINDINGS: Noncontrast head CT demonstrates stable, age appropriate ventricles and sulci. Mild periventricular hypodense small vessel ischemic disease. No definite acute infarct, hemorrhage, mass effect or midline shift. No abnormal extra-axial fluid collections. Normal posterior fossa with preserved basilar cisterns. Normal eye globes. Mild leftward nasal septal deviation. Clear imaged paranasal sinuses and mastoid air cells. Atherosclerotic ICA calcifications. Few radiopaque dental material. CONCLUSION: No acute intracranial CT abnormality, as described. Thank you for the opportunity to participate in this patient's care.
[2017-05-13 15:08] LABS: Bacteria,Urine 4+ /HPF (Negative); Bilirubin,Urine NEG (Negative); Blood,Urine NEG (Negative); Ketones,Urine NEG (Negative); Leukocyte Esterase,Urine SM (Negative); Mucus,Urine FEW /HPF; Nitrite,Urine NEG (Negative); Protein,Urine <15 mg/dL mg/dL (Negative); RBC,Urine < 1.0 /HPF (0.0-6.0); Urobilinogen,Urine < 2.0 mg/dL (<2.0)
[2017-05-13 15:44] VITALS: BP 95/66
== END 2017-05-13 17:17 | disposition other institution (70) ==
LOC: ED 12:55
DX: K72.90 Hepatic failure, unspecified without coma (principal); N28.9 Disorder of kidney and ureter, unspecified; E72.20 Disorder of urea cycle metabolism, unspecified; R41.82 Altered mental status, unspecified; I10 Essential (primary) hypertension
CPT/HCPCS: 36415; 70450; 80053; 81001; 82140; 84484; 85025; 85610; 85730; 93005; 93010; 96372; 99285; J1630